=== PATIENT | male | born 1975 | race Caucasian/White ===

== ENCOUNTER → 2017-04-18 | Outpatient (CLI) | payer BC ==
[2017-04-18 15:43] LABS: ALT 70 U/L (21-72); AST 32 U/L (17-59); Alkaline Phosphatase 72 U/L (38-126); Anion Gap 10 mmol/L; Blood Urea Nitrogen 19 mg/dL (9-20); Calcium 9.4 mg/dL (8.4-10.2); Carbon Dioxide 31 mmol/L (22-30); Chloride 98 mmol/L (98-107); Glucose 91 mg/dL (74-99); Non-African American GFR(MDRD) >60 (>60 ml/min/1.73 sqM); Potassium 4.3 mmol/L (3.5-5.1); Sodium 139 mmol/L (137-145); Total Bilirubin 0.4 mg/dL (0.2-1.3); Total Protein 8.4 g/dL (6.3-8.2)
[2017-04-18 16:12] LABS: Anisocytosis Slight; Aty Lym Flag Slight; CH 30.7; HCT 42.4 % (39.0-53.0); HDW 2.64; HGB 13.8 gm/dL (13.0-17.5); MCH 29.6 pg (25.0-35.0); MCHC 32.6 g/dL (31.0-37.0); MCV 90.9 fL (80.0-100.0); Mean Platelet Volume 6.7; RBC 4.67 m/uL (4.30-5.90); RDW 16.1 % (11.5-15.5); WBC 5.8 k/uL (3.8-10.6)
[2017-04-18 16:14] LABS: Hepatitis B Surface Ag Index 0.06
[2017-04-18 16:19] LABS: Hepatitis B Core IgM Index 0.03
[2017-04-18 16:31] LABS: Hepatitis C Virus IgG Ab Negative (Negative); Hepatitis C Virus IgG Index 0.06
[2017-04-18 17:37] LABS: Add Differential Manual Differential
[2017-04-18 17:41] LABS: Nucleated Red Blood Cells 0 /100 WBC (0-0); Total Cells Counted 100
[2017-04-18 19:48] LABS: Treponemal Ab Reactive (Non-Reactive)
[2017-04-22 14:38] LABS: LOG HIV Copies/mL 4.52 (<1.60)
== END | disposition home or self-care (01) ==
LOC: LABWHC1 15:03
PROVIDERS: ATTEND Internal Medicine Infectious Disease
DX: B20 Human immunodeficiency virus [HIV] disease (principal)
CPT/HCPCS: 36415; 80053; 80074; 85025; 86360; 86780; 87536; 87901

== ENCOUNTER → 2017-06-18 | Outpatient (CLI) | payer BC ==
[2017-06-18 13:08] LABS: ALT 52 U/L (21-72); AST 37 U/L (17-59); Alkaline Phosphatase 98 U/L (38-126); Anion Gap 11 mmol/L; Blood Urea Nitrogen 16 mg/dL (9-20); Calcium 9.4 mg/dL (8.4-10.2); Carbon Dioxide 28 mmol/L (22-30); Chloride 100 mmol/L (98-107); Glucose 143 mg/dL (74-99); Non-African American GFR(MDRD) >60 (>60 ml/min/1.73 sqM); Potassium 4.6 mmol/L (3.5-5.1); Sodium 139 mmol/L (137-145); Total Bilirubin 0.4 mg/dL (0.2-1.3); Total Protein 8.1 g/dL (6.3-8.2)
[2017-06-18 13:09] LABS: Basophils # (A) 0.1 k/uL (0-0.2); Basophils % (A) 1 %; CH 29.3; CHCM 33.4; Eosinophils # (A) 0.6 k/uL (0-0.7); Eosinophils % (A) 12 %; HCT 46.8 % (39.0-53.0); HGB 15.6 gm/dL (13.0-17.5); Luc # (Auto) 0.21; Luc % (Auto) 4; Lymphocytes # (A) 1.7 k/uL (1.0-4.8); Lymphocytes % (A) 36 %; MCH 29.5 pg (25.0-35.0); MCHC 33.5 g/dL (31.0-37.0); MCV 88.1 fL (80.0-100.0); Monocytes # (A) 0.3 k/uL (0-1.0); Monocytes % (A) 6 %; Neutrophils % (A) 42 %; RBC 5.31 m/uL (4.30-5.90); WBC 4.8 k/uL (3.8-10.6); WBC (Perox) 4.57
[2017-06-19 13:40] LABS: LOG HIV Copies/mL <1.60 (<1.60)
== END | disposition home or self-care (01) ==
LOC: LABWHC1 12:27
PROVIDERS: ATTEND Internal Medicine Infectious Disease
DX: B20 Human immunodeficiency virus [HIV] disease (principal)
CPT/HCPCS: 36415; 80053; 85025; 86360; 87536

== ENCOUNTER → 2017-09-26 | Outpatient (CLI) | payer BC ==
[2017-09-26 16:59] LABS: HCT 48.1 % (39.0-53.0); HGB 15.9 gm/dL (13.0-17.5); MCHC 33.2 g/dL (31.0-37.0); MCV 84.4 fL (80.0-100.0); Platelet Count 210 k/uL (150-450); RDW 12.4 % (11.5-15.5); WBC 4.8 k/uL (3.8-10.6)
[2017-09-26 17:17] LABS: ALT 57 U/L (21-72); AST 38 U/L (17-59); Albumin 4.8 g/dL (3.5-5.0); Alkaline Phosphatase 113 U/L (38-126); Anion Gap 13 mmol/L; Blood Urea Nitrogen 22 mg/dL (9-20); Calcium 9.9 mg/dL (8.4-10.2); Carbon Dioxide 30 mmol/L (22-30); Chloride 99 mmol/L (98-107); Glucose 117 mg/dL (74-99); Potassium 4.5 mmol/L (3.5-5.1); Sodium 142 mmol/L (137-145); Total Bilirubin 0.3 mg/dL (0.2-1.3); Total Protein 8.5 g/dL (6.3-8.2)
[2017-09-26 18:15] LABS: Eosinophils # (M) 0.19 k/uL (0-0.7); Lymphocytes # (M) 2.11 k/uL (1.0-4.8); Monocytes # (M) 0.48 k/uL (0-1.0); Neutrophils # (M) 2.02 k/uL (1.3-7.7); Neutrophils % (M) 42 %; Nucleated Red Blood Cells 0 /100 WBC (0-0); Polychromasia Present; Total Cells Counted 100
[2017-09-27 10:45] LABS: T4/T8 Ratio (CD4:CD8) 0.3 (1.0-3.7)
[2017-09-27 14:35] LABS: HIV-1 RNA Not detected (Not detected); HIV-1 RNA, Quant <40 Copies/mL (<40)
== END | disposition home or self-care (01) ==
LOC: LABWHC1 15:59
PROVIDERS: ATTEND Internal Medicine Infectious Disease
DX: B20 Human immunodeficiency virus [HIV] disease (principal)
CPT/HCPCS: 36415; 80053; 85025; 86360; 87536

== ENCOUNTER → 2018-03-07 | Outpatient (CLI) | payer BC ==
[2018-03-07 15:11] LABS: Basophils # (A) 0.1 k/uL (0-0.2); Basophils % (A) 1 %; Eosinophils # (A) 0.1 k/uL (0-0.7); Eosinophils % (A) 3 %; HCT 47.2 % (39.0-53.0); HGB 15.5 gm/dL (13.0-17.5); Lymphocytes # (A) 1.6 k/uL (1.0-4.8); Lymphocytes % (A) 31 %; MCH 26.9 pg (25.0-35.0); MCHC 32.8 g/dL (31.0-37.0); Mean Platelet Volume 5.7; Monocytes # (A) 0.3 k/uL (0-1.0); Monocytes % (A) 5 %; Neutrophils % (A) 57 %; Platelet Count 210 k/uL (150-450); RBC 5.75 m/uL (4.30-5.90); RDW 13.8 % (11.5-15.5); WBC 5.3 k/uL (3.8-10.6)
[2018-03-07 15:12] LABS: Albumin 4.9 g/dL (3.5-5.0); Calcium 9.8 mg/dL (8.4-10.2); Potassium 4.8 mmol/L (3.5-5.1); Total Bilirubin 0.4 mg/dL (0.2-1.3); Total Protein 8.1 g/dL (6.3-8.2)
[2018-03-08 09:40] LABS: T4/T8 Ratio (CD4:CD8) 0.4 (1.0-3.7)
[2018-03-10 14:26] LABS: HIV-1 RNA Not detected (Not detected); HIV-1 RNA, Quant <40 Copies/mL (<40)
== END | disposition home or self-care (01) ==
LOC: LABWHC1 14:35
PROVIDERS: ATTEND Internal Medicine Infectious Disease
DX: B20 Human immunodeficiency virus [HIV] disease (principal)
CPT/HCPCS: 36415; 80053; 85025; 86360; 87536

== ENCOUNTER → 2018-06-24 | Outpatient (CLI) | payer BC ==
[2018-06-24 13:48] LABS: Basophils % (A) 1 %; Eosinophils # (A) 0.2 k/uL (0-0.7); Eosinophils % (A) 4 %; HCT 49.7 % (39.0-53.0); HGB 16.5 gm/dL (13.0-17.5); Lymphocytes # (A) 1.5 k/uL (1.0-4.8); Lymphocytes % (A) 35 %; MCH 27.9 pg (25.0-35.0); MCHC 33.2 g/dL (31.0-37.0); MCV 84.1 fL (80.0-100.0); Mean Platelet Volume 6.1; Monocytes # (A) 0.3 k/uL (0-1.0); Monocytes % (A) 7 %; Neutrophils # (A) 2.1 k/uL (1.3-7.7); Neutrophils % (A) 49 %; Platelet Count 203 k/uL (150-450); RBC 5.91 m/uL (4.30-5.90); WBC 4.3 k/uL (3.8-10.6)
[2018-06-24 13:52] LABS: ALT 63 U/L (21-72); AST 42 U/L (17-59); Albumin 5.1 g/dL (3.5-5.0); Alkaline Phosphatase 133 U/L (38-126); Anion Gap 13 mmol/L; Blood Urea Nitrogen 23 mg/dL (9-20); Carbon Dioxide 28 mmol/L (22-30); Chloride 100 mmol/L (98-107); Glucose 123 mg/dL (74-99); Potassium 4.7 mmol/L (3.5-5.1); Sodium 141 mmol/L (137-145); Total Bilirubin 0.5 mg/dL (0.2-1.3); Total Protein 8.9 g/dL (6.3-8.2)
[2018-06-25 10:24] LABS: T4/T8 Ratio (CD4:CD8) 0.4 (1.0-3.7)
[2018-06-25 13:45] LABS: HIV-1 RNA Not detected (Not detected); HIV-1 RNA, Quant <40 Copies/mL (<40)
== END | disposition home or self-care (01) ==
LOC: LABWHC1 12:47
PROVIDERS: ATTEND Internal Medicine Infectious Disease
DX: B20 Human immunodeficiency virus [HIV] disease (principal)
CPT/HCPCS: 36415; 80053; 85025; 86360; 87536

== ENCOUNTER → 2019-05-01 | Outpatient (CLI) | payer BC ==
[2019-05-01 13:28] LABS: Basophils % (A) 1 %; Eosinophils # (A) 0.3 k/uL (0-0.7); Eosinophils % (A) 5 %; HCT 46.2 % (39.0-53.0); HGB 15.4 gm/dL (13.0-17.5); Lymphocytes # (A) 1.5 k/uL (1.0-4.8); Lymphocytes % (A) 31 %; MCH 27.8 pg (25.0-35.0); MCHC 33.4 g/dL (31.0-37.0); MCV 83.4 fL (80.0-100.0); Monocytes # (A) 0.3 k/uL (0-1.0); Monocytes % (A) 7 %; Neutrophils # (A) 2.5 k/uL (1.3-7.7); Neutrophils % (A) 53 %; Platelet Count 220 k/uL (150-450); RBC 5.53 m/uL (4.30-5.90); RDW 13.8 % (11.5-15.5); WBC 4.7 k/uL (3.8-10.6)
[2019-05-01 19:14] LABS: African American GFR (CKD) 93.5 (60.0-200.0); Anion Gap 8.9 mmol/L (4.00-12.00); BUN/Creat Ratio 12.73 Ratio (12.00-20.00); Calcium 9.4 mg/dL (8.7-10.3); Carbon Dioxide 29.1 mmol/L (21.6-31.8); Non-African American GFR(CKD) 80.6 (60.0-200.0); Potassium 4.6 mmol/L (3.5-5.5)
[2019-05-02 11:41] LABS: T4/T8 Ratio (CD4:CD8) 0.4 (1.0-3.7)
[2019-05-04 11:51] LABS: HIV-1 RNA DETECTED (Not detected); HIV-1 RNA, Quant <40 Copies/mL (<40)
== END | disposition home or self-care (01) ==
LOC: LABWHC1 12:21
PROVIDERS: ATTEND Internal Medicine Infectious Disease
DX: B20 Human immunodeficiency virus [HIV] disease (principal)
CPT/HCPCS: 36415; 80048; 85025; 86360; 87536

== ENCOUNTER → 2019-05-04 | Outpatient (CLI) | payer BC ==
[2019-05-04 18:16] LABS: Chol/HDL Ratio 4.71; LDL Cholesterol,Calculated 94.2 mg/dL (0.0-131.0); VLDL Calculation 31.8 mg/dL (5.00-40.00)
== END | disposition home or self-care (01) ==
LOC: LABWHC1 08:42
PROVIDERS: ATTEND Internal Medicine Infectious Disease
DX: B20 Human immunodeficiency virus [HIV] disease (principal)
CPT/HCPCS: 36415; 80061

== ENCOUNTER 2020-04-29 13:37 | Inpatient (IN) | payer BC ==
[2020-04-29] MEDS ORDERED: SODIUM CHLORIDE 0.9% 1,000 ML IV STA (13:59)
[2020-04-29] MEDS ORDERED: MORPHINE SULFATE 4 MG/ML SYRINGE IV STA (13:59)
[2020-04-29] MEDS ORDERED: ONDANSETRON 4 MG/2 ML VIAL IVP STA (14:00)
[2020-04-29 14:41] LABS: Basophils # (A) 0.1 k/uL (0-0.2); Basophils % (A) 1 %; Eosinophils % (A) 0 %; HCT 44.5 % (39.0-53.0); HGB 14.8 gm/dL (13.0-17.5); Lymphocytes # (A) 0.8 k/uL (1.0-4.8); Lymphocytes % (A) 8 %; MCH 27.9 pg (25.0-35.0); MCHC 33.2 g/dL (31.0-37.0); MCV 83.9 fL (80.0-100.0); Mean Platelet Volume 6.4; Monocytes # (A) 0.5 k/uL (0-1.0); Monocytes % (A) 5 %; Neutrophils # (A) 9.4 k/uL (1.3-7.7); Neutrophils % (A) 84 %; Platelet Count 196 k/uL (150-450); RBC 5.31 m/uL (4.30-5.90); RDW 13.4 % (11.5-15.5); WBC 11.1 k/uL (3.8-10.6)
[2020-04-29 14:42] LABS: Appearance,Urine Clear (Clear); Bilirubin,Urine Negative (Negative); Blood,Urine Negative (Negative); Color,Urine Yellow; Glucose,Urine (UA) Negative (Negative); Ketones,Urine Negative (Negative); Leukocyte Esterase,Urine Negative (Negative); Nitrite,Urine Negative (Negative); Protein,Urine Trace (Negative); Specific Gravity,Urine 1.026 (1.001-1.035); Urobilinogen,Urine <2.0 mg/dL (<2.0)
[2020-04-29 14:48] LABS: Partial Thromboplastin Time 24.5 sec (22.0-30.0)
[2020-04-29 14:50] LABS: ALT 36 U/L (4-49); AST 33 U/L (17-59); African American GFR (CKD) >90 (>60 ml/min/1.73 sqM); Albumin 4.9 g/dL (3.5-5.0); Alkaline Phosphatase 101 U/L (38-126); Amylase 62 U/L (30-110); Anion Gap 8 mmol/L; Blood Urea Nitrogen 24 mg/dL (9-20); Calcium 9.4 mg/dL (8.4-10.2); Carbon Dioxide 25 mmol/L (22-30); Chloride 102 mmol/L (98-107); Glucose 164 mg/dL (74-99); Non-African American GFR(CKD) >90 (>60 ml/min/1.73 sqM); Potassium 4.2 mmol/L (3.5-5.1); Sodium 135 mmol/L (137-145); Total Protein 7.7 g/dL (6.3-8.2)
--- NOTE | 2020-04-29 14:57 | CT ---
EXAMINATION TYPE: CT abdomen pelvis w con DATE OF EXAM: 04/29/2020 COMPARISON: 03/05/2016 HISTORY: Lower abdominal pain. CT DLP: 1493.2 mGycm CONTRAST: CT scan of the abdomen and pelvis is performed without Oral Contrast and with IV Contrast, patient in jected with 100 mL of Isovue 300. FINDINGS: LUNG BASES-: No visible nodule. No infiltrate. LIVER/GB: No calcified gallstones. Fatty liver. No space occupying hepatic lesion. Biliary tree is of normal caliber. PANCREAS: No inflammation. No distinct mass. SPLEEN: No splenic enlargement. No lesion seen. ADRENALS: No nodule. No thickening. KIDNEYS/BLADDER: No hydronephrosis. Nonobstructing nephrolithiasis lower pole left kidney. Additiona l nonobstructing left renal calculi measuring up to 7.4 mm. No distinct renal mass. Urinary bladder grossly unremarkable. BOWEL: Mild thickening and dilatation of the appendix measuring up to 1.2 cm with mild periappendicea l inflammatory change compatible with mild uncomplicated acute appendicitis. Normal bowel caliber. GENITAL ORGANS: No gross abnormality. LYMPH NODES: No greater than 1cm abdominal or pelvic lymph nodes are appreciated. AORTA: No significant abnormality. OSSEOUS STRUCTURES: No significant abnormality is seen. OTHER: No significant additional abnormality is seen. IMPRESSION: 1. Mild thickening and dilatation of the appendix measuring up to 1.2 cm with mild periappendiceal in flammatory change compatible with mild uncomplicated acute appendicitis.
--- NOTE | 2020-04-29 14:58 | ED ---
Abdominal Pain HPI <Cristo Chavira - Last Filed: 04/29/20 15:13> - General Source: patient Mode of arrival: ambulatory Limitations: no limitations <Jenni Soto - Last Filed: 04/29/20 15:24> - General Chief Complaint: Abdominal Pain Stated Complaint: Abd Pain Time Seen by Provider: 04/29/20 13:44 - History of Present Illness Initial Comments: Patient is a 44-year-old male presenting to the emergency Department with complaints of lower abdominal pain that started approximately 6 AM this morning. Patient states yesterday he felt fine, was able to eat and drink as normal. Patient states he sat down to start work today and noticed some lower abdominal discomfort. He states it is certainly progressed into excruciating pain. He states he feels it all over the lower abdomen. He denies any nausea or vomiting. He denies any fever or chills. He states history of umbilical hernia repair, no other abdominal surgeries. He's been having regular bowel movements, he denies any urinary complaints. He states he does have a history of kidney stones and this feels different. He states he also feels like his abdomen is distended. He has not been able to eat or drink anything today. He has no further complaints at this time. Upon arrival to the ER, his vitals are stable. (Jenni Soto) - Related Data Home Medications Medication Instructions Recorded Confirmed Acetaminophen Tab [Tylenol] 650 mg PO Q6H PRN 02/29/16 03/05/16 Lisdexamfetamine Dimesylate 60 mg PO QAM 02/29/16 03/05/16 [Vyvanse] HYDROcodone/APAP 7.5-325MG [[place] 1 tab PO Q4H PRN 03/05/16 03/05/16 7.5-325] Omeprazole [PriLOSEC] 20 mg PO AC-BID PRN 03/05/16 03/05/16 Allergies Allergy/AdvReac Type Severity Reaction Status Date / Time codeine Allergy Nausea & Verified 04/29/20 13:41 Vomiting, Rash/Hives Review of Systems ROS Other: All systems not noted in ROS Statement are negative. <Cristo Chavira - Last Filed: 04/29/20 15:13> ROS Other: All systems not noted in ROS Statement are negative. <Jenni Soto - Last Filed: 04/29/20 15:24> ROS Statement: Those systems with pertinent positive or pertinent negative responses have been documented in the HPI. Past Medical History Past Medical History: GERD/Reflux Additional Past Medical History / Comment(s): HX OF SPINAL FUSION-OCCASIONAL BACK PAIN, UMBILICAL HERNIA., kidney stones History of Any Multi-Drug Resistant Organisms: None Reported Past Surgical History: Back Surgery Additional Past Surgical History / Comment(s): SPINAL FUSION 2014 (LUMBAR) Past Anesthesia/Blood Transfusion Reactions: No Reported Reaction Past Psychological History: ADD/ADHD Smoking Status: Never smoker Past Alcohol Use History: Occasional Past Drug Use History: None Reported - Past Family History Mother Family Medical History: No Reported History <Jenni Soto - Last Filed: 04/29/20 15:24> General Exam Limitations: no limitations <Jenni Soto - Last Filed: 04/29/20 15:24> - General Exam Comments Initial Comments: GENERAL: Patient is well-developed and well-nourished. Patient is nontoxic and in no acute distress. HEAD: Atraumatic, normocephalic. EYES: Pupils equal round and reactive to light, extraocular movements intact, sclera anicteric, conjunctiva are normal. Eyelids were unremarkable. ENT: TMs normal, nares patent, oropharynx clear without exudates. Moist mucous membranes. NECK: Normal range of motion, supple without lymphadenopathy or JVD. LUNGS: Unlabored respirations. Breath sounds clear to auscultation bilaterally and equal. No wheezes rales or rhonchi. HEART: Regular rate and rhythm without murmurs, rubs or gallops. ABDOMEN: Tender to palpation of the entire lower abdomen, umbilical region, positive guarding. Positive Rovsing sign. Soft, normoactive bowel sounds. No masses appreciated. : Deferred MUSCULOSKELETAL: Normal extremities with adequate strength and normal range of motion, no pitting or edema. No clubbing or cyanosis. NEUROLOGICAL: Patient is alert and oriented x 3. Motor and sensory are also intact. Cranial nerves II through XII grossly intact. Symmetrical smile. Normal speech, normal gait. PSYCH: Normal mood, normal affect. SKIN: Warm, Dry, normal turgor, no rashes or lesions noted. (Jenni Soto) Course Vital Signs 04/29/20 04/29/20 13:39 15:14 Temperature 97.9 F 98 F Pulse Rate 76 90 Respiratory 20 18 Rate Blood Pressure 132/91 140/70 O2 Sat by Pulse 97 100 Oximetry Medical Decision Making - Lab Data Result diagrams: 04/29/20 14:10 04/29/20 14:10 <Cristo Chavira - Last Filed: 04/29/20 15:13> - Lab Data Result diagrams: 04/29/20 14:10 04/29/20 14:10 <Jenni Soto - Last Filed: 04/29/20 15:24> - Medical Decision Making Patient reevaluated and reexamined by myself, Dr. Chavira. Patient updated on results and plan. Case was discussed with Dr. Yeager, who will admit for surgical call. Case was earlier discussed with Dr. Sim who stated Dr. Rabago was on-call, who stated Dr. Yeager was configuration analyst. (Cristo Chavira) Patient is a 44-year-old male here for lower abdominal pain started at 6 AM this morning. History of umbilical hernia repair, no other abdominal surgeries. His vital signs are stable upon arrival. Patient has significant pain with palpation of the entire lower abdomen, umbilical region. Lab work does show slight leukocytosis of 11.1, lactic acid is normal at 1.3, lipase is 85, urine shows no evidence of infection, no hematuria. Computed tomography scan shows evidence for acute mild appendicitis. Patient has been given fluids, pain control. I will start antibiotics on the patient. Patient will be admitted to Dr. Damon who accepts admission. Will keep patient NPO. Patient is agreement with this plan of care. Case discussed with Dr. Chavira. (Jenni Soto) - Lab Data Lab Results 04/29/20 04/29/20 04/29/20 Range/Units 14:10 14:10 14:10 WBC 11.1 H (3.8-10.6) k/uL RBC 5.31 (4.30-5.90) m/uL Hgb 14.8 (13.0-17.5) gm/dL Hct 44.5 (39.0-53.0) % MCV 83.9 (80.0-100.0) fL MCH 27.9 (25.0-35.0) pg MCHC 33.2 (31.0-37.0) g/dL RDW 13.4 (11.5-15.5) % Plt Count 196 (150-450) k/uL Neutrophils % 84 % Lymphocytes % 8 % Monocytes % 5 % Eosinophils % 0 % Basophils % 1 % Neutrophils # 9.4 H (1.3-7.7) k/uL Lymphocytes # 0.8 L (1.0-4.8) k/uL Monocytes # 0.5 (0-1.0) k/uL Eosinophils # 0.0 (0-0.7) k/uL Basophils # 0.1 (0-0.2) k/uL PT 10.0 (9.0-12.0) sec INR 1.0 (<1.2) APTT 24.5 (22.0-30.0) sec Sodium (137-145) mmol/L Potassium (3.5-5.1) mmol/L Chloride (98-107) mmol/L Carbon Dioxide (22-30) mmol/L Anion Gap mmol/L BUN (9-20) mg/dL Creatinine (0.66-1.25) mg/dL Est GFR (CKD-EPI)AfAm (>60 ml/min/1.73 sqM) Est GFR (CKD-EPI)NonAf (>60 ml/min/1.73 sqM) Glucose (74-99) mg/dL Plasma Lactic Acid Gelacio (0.7-2.0) mmol/L Calcium (8.4-10.2) mg/dL Total Bilirubin (0.2-1.3) mg/dL AST (17-59) U/L ALT (4-49) U/L Alkaline Phosphatase (38-126) U/L Total Protein (6.3-8.2) g/dL Albumin (3.5-5.0) g/dL Amylase (30-110) U/L Lipase (23-300) U/L Urine Color Yellow Urine Appearance Clear (Clear) Urine pH 6.0 (5.0-8.0) Ur Specific [place] 1.026 (1.001-1.035) Urine Protein Trace H (Negative) Urine Glucose (UA) Negative (Negative) Urine Ketones Negative (Negative) Urine Blood Negative (Negative) Urine Nitrite Negative (Negative) Urine Bilirubin Negative (Negative) Urine Urobilinogen <2.0 (<2.0) mg/dL Ur Leukocyte Esterase Negative (Negative) 04/29/20 04/29/20 Range/Units 14:10 14:10 WBC (3.8-10.6) k/uL RBC (4.30-5.90) m/uL Hgb (13.0-17.5) gm/dL Hct (39.0-53.0) % MCV (80.0-100.0) fL MCH (25.0-35.0) pg MCHC (31.0-37.0) g/dL RDW (11.5-15.5) % Plt Count (150-450) k/uL Neutrophils % % Lymphocytes % % Monocytes % % Eosinophils % % Basophils % % Neutrophils # (1.3-7.7) k/uL Lymphocytes # (1.0-4.8) k/uL Monocytes # (0-1.0) k/uL Eosinophils # (0-0.7) k/uL Basophils # (0-0.2) k/uL PT (9.0-12.0) sec INR (<1.2) APTT (22.0-30.0) sec Sodium 135 L (137-145) mmol/L Potassium 4.2 (3.5-5.1) mmol/L Chloride 102 (98-107) mmol/L Carbon Dioxide 25 (22-30) mmol/L Anion Gap 8 mmol/L BUN 24 H (9-20) mg/dL Creatinine 0.82 (0.66-1.25) mg/dL Est GFR (CKD-EPI)AfAm >90 (>60 ml/min/1.73 sqM) Est GFR (CKD-EPI)NonAf >90 (>60 ml/min/1.73 sqM) Glucose 164 H (74-99) mg/dL Plasma Lactic Acid Gelacio 1.3 (0.7-2.0) mmol/L Calcium 9.4 (8.4-10.2) mg/dL Total Bilirubin 1.0 (0.2-1.3) mg/dL AST 33 (17-59) U/L ALT 36 (4-49) U/L Alkaline Phosphatase 101 (38-126) U/L Total Protein 7.7 (6.3-8.2) g/dL Albumin 4.9 (3.5-5.0) g/dL Amylase 62 (30-110) U/L Lipase 85 (23-300) U/L Urine Color Urine Appearance (Clear) Urine pH (5.0-8.0) Ur Specific [place] (1.001-1.035) Urine Protein (Negative) Urine Glucose (UA) (Negative) Urine Ketones (Negative) Urine Blood (Negative) Urine Nitrite (Negative) Urine Bilirubin (Negative) Urine Urobilinogen (<2.0) mg/dL Ur Leukocyte Esterase (Negative) Disposition <Cristo Chavira - Last Filed: 04/29/20 15:13> Decision Date: 04/29/20 Decision Time: 15:18 <Jenni Soto - Last Filed: 04/29/20 15:24> Clinical Impression: Acute appendicitis Disposition: ADMITTED IP TO THIS HOSP Condition: Stable Referrals: Александр Gaona DO [Primary Care Provider] - 1-2 days
[2020-04-29] MEDS ORDERED: MORPHINE SULFATE 4 MG/ML SYRINGE IVP STA (15:04)
[2020-04-29] MEDS ORDERED: PIPERACILLIN-TAZOBACTAM 3.375 GM in SODIUM CHLORIDE 0.9% 100 ML IVPB STA (15:04)
[2020-04-29] MEDS ORDERED: NALOXONE 0.4 MG/ML 1 ML VIAL IV PRN (15:16)
[2020-04-29] MEDS ORDERED: ONDANSETRON 4 MG/2 ML VIAL IVP PRN (15:16)
[2020-04-29] MEDS ORDERED: KETOROLAC 15 MG/ML 1 ML VIAL IVP PRN (15:16)
[2020-04-29] MEDS: SODIUM CHLORIDE 0.9% 1,000 ML IV SCH (15:49)
[2020-04-29] MEDS ORDERED: MIDAZOLAM 2 MG/2 ML VIAL IVP ONE (16:49)
[2020-04-29] MEDS ORDERED: ONDANSETRON 4 MG/2 ML VIAL IVP ONE (16:49)
[2020-04-29] MEDS ORDERED: fentaNYL (PF) 50 MCG/ML 2 ML AMP IVP ONE ×2 (16:49)
[2020-04-29] MEDS ORDERED: IV FLUID CONTINUATION 1,000 ML IV ONE (17:01)
[2020-04-29] MEDS ORDERED: fentaNYL (PF) 50 MCG/ML 2 ML AMP IV ONE ×2 (17:27→17:37)
--- NOTE | 2020-04-29 17:40 | P.GSHP ---
History of Present Illness H&P Date: 04/29/20 Chief Complaint: abdominal pain The patient is a 44 show man who presented with abdominal pain. He was in his usual state of health yesterday. This morning he developed right lower quadrant pain and got progressively worse through the day. He was unable to eat and drink. The pain got worse so he came into the emergency department and workup showed acute appendicitis. He had a umbilical hernia repair in 2016. He says it was "a mess", sounds like he had a postoperative infection. He did not require further surgery for this. - Review of Systems All systems: negative Past Medical History Past Medical History: GERD/Reflux Additional Past Medical History / Comment(s): HX OF SPINAL FUSION-OCCASIONAL BACK PAIN, UMBILICAL HERNIA., kidney stones, HIV History of Any Multi-Drug Resistant Organisms: None Reported Past Surgical History: Back Surgery Additional Past Surgical History / Comment(s): SPINAL FUSION 2013 (LUMBAR), umbilical hermia Past Anesthesia/Blood Transfusion Reactions: No Reported Reaction Past Psychological History: ADD/ADHD Smoking Status: Never smoker Past Alcohol Use History: Occasional Past Drug Use History: None Reported - Past Family History Mother Family Medical History: No Reported History Medications and Allergies Home Medications Medication Instructions Recorded Confirmed Type Lisdexamfetamine Dimesylate 60 mg PO DAILY 02/29/16 04/29/20 History [Vyvanse] Elviteg/Namita/Emtric/Tenofo Dis 1 tab PO DAILY 04/29/20 04/29/20 History [Stribild Tablet] Mometasone Furoate [Nasonex Nasal 2 spray EA NOSTRIL DAILY 04/29/20 04/29/20 History Christiana] Allergies Allergy/AdvReac Type Severity Reaction Status Date / Time codeine AdvReac Nausea & Verified 04/29/20 16:53 Vomiting, Rash/Hives Surgical - Exam Osteopathic Statement: *. No significant issues noted on an osteopathic structural exam other than those noted in the History and Physical/Consult. Vital Signs Temp Pulse Resp BP Pulse Ox 97.9 F 76 20 132/91 97 04/29/20 13:39 04/29/20 13:39 04/29/20 13:39 04/29/20 13:39 04/29/20 13:39 - General well developed, well nourished, moderate distress - Eyes normal ocular movement - ENT normal mucosa, no hearing loss - Neck trachea midline - Respiratory clear to auscultation - Cardiovascular Rhythm: regular - Abdomen Abdomen: soft, tender, surgical scars, guarding (Voluntary guarding right lower quadrant) Results - Labs 04/29/20 14:10 04/29/20 14:10 Abnormal Lab Results - Last 24 Hours (Table) 04/29/20 04/29/20 04/29/20 Range/Units 14:10 14:10 14:10 WBC 11.1 H (3.8-10.6) k/uL Neutrophils # 9.4 H (1.3-7.7) k/uL Lymphocytes # 0.8 L (1.0-4.8) k/uL Sodium 135 L (137-145) mmol/L BUN 24 H (9-20) mg/dL Glucose 164 H (74-99) mg/dL Urine Protein Trace H (Negative) Diabetes panel 04/29/20 Range/Units 14:10 Sodium 135 L (137-145) mmol/L Potassium 4.2 (3.5-5.1) mmol/L Chloride 102 (98-107) mmol/L Carbon Dioxide 25 (22-30) mmol/L BUN 24 H (9-20) mg/dL Creatinine 0.82 (0.66-1.25) mg/dL Glucose 164 H (74-99) mg/dL Calcium 9.4 (8.4-10.2) mg/dL AST 33 (17-59) U/L ALT 36 (4-49) U/L Alkaline Phosphatase 101 (38-126) U/L Total Protein 7.7 (6.3-8.2) g/dL Albumin 4.9 (3.5-5.0) g/dL Calcium panel 04/29/20 Range/Units 14:10 Calcium 9.4 (8.4-10.2) mg/dL Albumin 4.9 (3.5-5.0) g/dL Pituitary panel 04/29/20 Range/Units 14:10 Sodium 135 L (137-145) mmol/L Potassium 4.2 (3.5-5.1) mmol/L Chloride 102 (98-107) mmol/L Carbon Dioxide 25 (22-30) mmol/L BUN 24 H (9-20) mg/dL Creatinine 0.82 (0.66-1.25) mg/dL Glucose 164 H (74-99) mg/dL Calcium 9.4 (8.4-10.2) mg/dL Adrenal panel 04/29/20 Range/Units 14:10 Sodium 135 L (137-145) mmol/L Potassium 4.2 (3.5-5.1) mmol/L Chloride 102 (98-107) mmol/L Carbon Dioxide 25 (22-30) mmol/L BUN 24 H (9-20) mg/dL Creatinine 0.82 (0.66-1.25) mg/dL Glucose 164 H (74-99) mg/dL Calcium 9.4 (8.4-10.2) mg/dL Total Bilirubin 1.0 (0.2-1.3) mg/dL AST 33 (17-59) U/L ALT 36 (4-49) U/L Alkaline Phosphatase 101 (38-126) U/L Total Protein 7.7 (6.3-8.2) g/dL Albumin 4.9 (3.5-5.0) g/dL - Imaging CT scan - abdomen: report reviewed Assessment and Plan (1) Acute appendicitis Current Visit: Yes Status: Acute Code(s): K35.80 - UNSPECIFIED ACUTE APPENDICITIS SNOMED Code(s): 76036381 Plan: Laparoscopic appendectomy possible open. The procedure, risks, complications were discussed. Usual postoperative course was discussed. The trocar sites will have to be altered due to previous hernia surgery. Questions were encouraged and answered. We'll do DVT and ulcer prophylaxis. Further recommendations to follow.
[2020-04-29] MEDS ORDERED: KETOROLAC 30 MG/ML 1 ML VIAL ONE (17:45)
[2020-04-29] MEDS ORDERED: SUCCINYLCHOLINE CHLORIDE 100 MG/5 ML SYR IV ONE (17:45)
[2020-04-29] MEDS ORDERED: ONDANSETRON 4 MG/2 ML VIAL ONE (17:45)
[2020-04-29] MEDS ORDERED: GLYCOPYRROLATE 0.2 MG/ML 2 ML VIAL ONE (17:45)
[2020-04-29] MEDS ORDERED: NEOSTIGMINE 1 MG/ML 10 ML VIAL ONE (17:45)
[2020-04-29] MEDS ORDERED: fentaNYL (PF) 50 MCG/ML 2 ML AMP ONE (17:45)
[2020-04-29] MEDS ORDERED: PROPOFOL 10 MG/ML 20 ML VIAL IV ONE (17:45)
[2020-04-29] MEDS ORDERED: ROCURONIUM BROMIDE 10 MG/ML 5 ML VIAL IV ONE (17:45)
[2020-04-29] MEDS ORDERED: LIDOCAINE 1% INJ 10MG/ML (20 ML MDV) ONE (17:45)
[2020-04-29] MEDS ORDERED: MIDAZOLAM 2 MG/2 ML VIAL ONE (17:45)
[2020-04-29] MEDS ORDERED: SODIUM CHLORIDE 0.9% 1,000 ML IV ONE ×2 (17:51→20:04)
[2020-04-29] MEDS ORDERED: BUPIVACAIN-EPI 0.25%-1:200,000 30 ML VIAL SQ ONE ×2 (18:17)
[2020-04-29] MEDS ORDERED: LACTATED RINGERS 1,000 ML IV ONE (18:22)
[2020-04-29] MEDS ORDERED: traMADol 50 MG TAB PO PRN (19:08)
[2020-04-29] MEDS ORDERED: METOCLOPRAMIDE 5 MG/ML 2 ML VIAL IVP PRN (19:08)
--- NOTE | 2020-04-29 19:14 | P.OP ---
Date of Procedure: 04/29/20 Preoperative Diagnosis: Acute appendicitis Postoperative Diagnosis: Acute gangrenous appendicitis Procedure(s) Performed: Laparoscopic appendectomy Anesthesia: BEV Surgeon: Kristina Damon Estimated Blood Loss (ml): 10 Pathology: other (Appendix) Condition: stable Disposition: PACU Indications for Procedure: The patient presented with acute abdominal pain. Workup by a CT showed acute appendicitis Description of Procedure: The patient's taken the operative suite where he is prepped and draped in the usual sterile manner under general endotracheal anesthetic. A small incision is made to the left of the umbilicus. A optical trocar was placed through the abdominal wall into the peritoneal cavity. Pneumoperitoneum was established with CO2 gas. He has omentum adherent in the periumbilical and right upper quadrant. Sites are chosen for accessory trochars needs are placed through small skin incisions. The appendix is grasped and the mesentery was taken down with harmonic scissors. The appendix was gangrenous and began to leak allan fluid with manipulation. An appendicolith also fell out of the appendix. An additional trocar was placed. The appendicolith was grasped and placed into a specimen retrieval bag and removed. The base the appendix was freed up. It was ligated with a ISAI stapler device. The specimen was then placed into a specimen retrieval bag. The appendiceal stump and paracolic gutter were irrigated and aspirated. No bleeding was noted. The excess irrigant was suctioned out. The pneumoperitoneum was released. The trochars were removed. The specimen retrieval bag was removed. The fascia to the left of the umbilicus was closed with 0 Vicryl. The skin incisions were closed with iris. Sterile dressings were applied. He tolerated the procedure without difficulty and was taken recovery room in satisfactory condition. According to or personnel, all counts were correct.
[2020-04-29] MEDS: HYDROmorphone 0.5 MG/0.5 ML SYRINGE IVP PRN ×2 (19:53→21:20)
[2020-04-29] MEDS: MORPHINE SULFATE 4 MG/ML SYRINGE IV PRN (20:26)
[2020-04-29] MEDS: FAMOTIDINE 20 MG TAB PO SCH (20:30)
[2020-04-29] MEDS: PIPERACILLIN-TAZOBACTAM 3.375 GM in SODIUM CHLORIDE 0.9% 100 ML IVPB SCH (20:30)
[2020-04-29] MEDS: D5-0.45% NACL WITH KCL 20MEQ/L 1,000 ML IV SCH (23:58)
[2020-04-29] MEDS: KETOROLAC 15 MG/ML 1 ML VIAL IVP SCH (23:59)
[2020-04-30] MEDS: HYDROmorphone 0.5 MG/0.5 ML SYRINGE IVP PRN ×4 (01:47→22:30)
[2020-04-30] MEDS: MORPHINE SULFATE 4 MG/ML SYRINGE IV PRN (03:31)
[2020-04-30] MEDS: KETOROLAC 15 MG/ML 1 ML VIAL IVP SCH ×3 (05:04→17:49)
[2020-04-30] MEDS: PIPERACILLIN-TAZOBACTAM 3.375 GM in SODIUM CHLORIDE 0.9% 100 ML IVPB SCH ×3 (05:04→20:02)
[2020-04-30 07:17] LABS: Glucose,Whole Blood 133 mg/dL (75-99)
[2020-04-30 07:54] LABS: HCT 46.1 % (39.0-53.0); HGB 14.6 gm/dL (13.0-17.5); MCH 27.6 pg (25.0-35.0); MCHC 31.7 g/dL (31.0-37.0); MCV 87.1 fL (80.0-100.0); Mean Platelet Volume 6.4; Platelet Count 173 k/uL (150-450); RBC 5.29 m/uL (4.30-5.90); RDW 13.4 % (11.5-15.5); WBC 6.6 k/uL (3.8-10.6)
[2020-04-30] MEDS: FAMOTIDINE 20 MG TAB PO SCH ×2 (08:18→20:03)
[2020-04-30 08:51] LABS: Band Neutrophils % 13 %; Basophils # (M) 0.07 k/uL (0-0.2); Lymphocytes # (M) 1.12 k/uL (1.0-4.8); Monocytes # (M) 0.79 k/uL (0-1.0); Neutrophils % (M) 57 %; Nucleated Red Blood Cells 0 /100 WBC (0-0); Total Cells Counted 100
[2020-04-30] MEDS: SODIUM CHLORIDE 0.9% 1,000 ML IV SCH (09:33)
--- NOTE | 2020-04-30 11:56 | P.PN ---
Subjective Progress Note Date: 04/30/20 Principal diagnosis: Appendicitis The patient is postoperative day 1 laparoscopic appendectomy for gangrenous appendicitis. He was having postoperative urinary retention and has been straight catheterized for large amount once. The patient says he usually has nocturia 3 times per night. Denies any blood in the urine or frequent urinary tract infections. He doesn't have much of an appetite. No nausea. Objective - Vital Signs Vital signs: Vital Signs Temp 99.9 F H 04/30/20 07:00 Pulse 84 04/30/20 07:00 Resp 18 04/30/20 07:00 BP 104/62 04/30/20 07:00 Pulse Ox 96 04/30/20 07:00 Intake & Output 04/29/20 04/30/20 04/30/20 18:59 06:59 18:59 Intake Total 1600 920 Output Total 310 800 Balance 1600 610 -800 Weight 102.058 kg 102.058 kg Intake: IV 1600 200 Intake, IV Titration 720 Amount D5-0.45% NaCl with KCl 400 20Meq/l 1,000 ml @ 75 mls /hr IV .[id number] ADELINA Rx#: [id number] Piperacillin-Tazobactam 3 200 .375 gm In Sodium Chloride 0.9% 100 ml @ 25 mls/hr IVPB Q8H ADELINA Rx#: [id number] Sodium Chloride 0.9% 1, 120 000 ml @ 60 mls/hr IV . [id number] ADELINA Rx#:[id number] Output: Urine 300 800 Uretheral (Lim) 800 Estimated Blood Loss 10 - Constitutional General appearance: Present: cooperative - Respiratory Respiratory: bilateral: CTA, diminished (Mildly at the bases) - Cardiovascular Rhythm: regular - Gastrointestinal General gastrointestinal: Present: decreased bowel sounds, soft Localized gastrointestinal: surgical scar: diffuse (Dressings intact clean and dry) - Labs CBC & Chem 7: 04/30/20 07:10 04/29/20 14:10 Labs: Abnormal Lab Results - Last 24 Hours (Table) 04/29/20 04/29/20 04/29/20 Range/Units 14:10 14:10 14:10 WBC 11.1 H (3.8-10.6) k/uL Neutrophils # 9.4 H (1.3-7.7) k/uL Lymphocytes # 0.8 L (1.0-4.8) k/uL Sodium 135 L (137-145) mmol/L BUN 24 H (9-20) mg/dL Glucose 164 H (74-99) mg/dL POC Glucose (mg/dL) (75-99) mg/dL Urine Protein Trace H (Negative) 04/30/20 Range/Units 07:09 WBC (3.8-10.6) k/uL Neutrophils # (1.3-7.7) k/uL Lymphocytes # (1.0-4.8) k/uL Sodium (137-145) mmol/L BUN (9-20) mg/dL Glucose (74-99) mg/dL POC Glucose (mg/dL) 133 H (75-99) mg/dL Urine Protein (Negative) Assessment and Plan (1) Acute appendicitis Current Visit: Yes Status: Acute Code(s): K35.80 - UNSPECIFIED ACUTE APPENDICITIS SNOMED Code(s): 36855296 Plan: The appendix was gangrenous and falling apart during the operation. I would keep him on IV antibiotics for a couple of more days and send him home on oral antibiotics. Typically the patient has nocturia 3. I'll start him on some Flomax. He'll be straight catheterized when necessary. Multimodal pain control including Toradol, tramadol and Dilaudid as needed. Questions were encouraged and answered
[2020-04-30] MEDS: D5-0.45% NACL WITH KCL 20MEQ/L 1,000 ML IV SCH (15:40)
[2020-04-30] MEDS: TAMSULOSIN 0.4 MG CAP.ER.24H PO SCH (17:49)
[2020-05-01] MEDS: KETOROLAC 15 MG/ML 1 ML VIAL IVP SCH ×5 (00:03→23:59)
[2020-05-01] MEDS: SODIUM CHLORIDE 0.9% 1,000 ML IV SCH ×2 (01:22→17:36)
[2020-05-01] MEDS: D5-0.45% NACL WITH KCL 20MEQ/L 1,000 ML IV SCH ×2 (01:44→14:31)
[2020-05-01] MEDS: PIPERACILLIN-TAZOBACTAM 3.375 GM in SODIUM CHLORIDE 0.9% 100 ML IVPB SCH ×3 (03:59→20:43)
[2020-05-01] MEDS: HYDROmorphone 0.5 MG/0.5 ML SYRINGE IVP PRN ×3 (08:32→20:48)
[2020-05-01] MEDS: FAMOTIDINE 20 MG TAB PO SCH ×2 (08:33→20:43)
--- NOTE | 2020-05-01 11:32 | P.PN ---
Subjective Progress Note Date: 05/01/20 Principal diagnosis: Appendicitis The patient is postoperative day 2 laparoscopic appendectomy for acute gangrenous appendicitis. He is complaining of a cough. He has been able to urinate. He has no appetite. No nausea or vomiting. He is ambulating in the room. Objective - Vital Signs Vital signs: Vital Signs Temp 98.1 F 05/01/20 07:00 Pulse 110 H 05/01/20 07:00 Resp 18 05/01/20 07:00 BP 116/81 05/01/20 07:00 Pulse Ox 95 05/01/20 07:00 Intake & Output 04/30/20 05/01/20 05/01/20 18:59 06:59 18:59 Intake Total 850 450 Output Total 800 750 Balance 50 -300 Intake: Intake, IV Titration 850 450 Amount D5-0.45% NaCl with KCl 750 300 20Meq/l 1,000 ml @ 75 mls /hr IV .[id number] ADELINA Rx#: [id number] Piperacillin-Tazobactam 3 100 150 .375 gm In Sodium Chloride 0.9% 100 ml @ 25 mls/hr IVPB Q8H ADELINA Rx#: [id number] Output: Urine 800 750 Uretheral (Lim) 800 Other: Voiding Method Toilet Toilet # Voids 2 - Constitutional General appearance: Present: cooperative - Respiratory Respiratory: bilateral: diminished (Markedly diminished bilaterally. No rales or rhonchi. Doing very poorly on his incentive spirometry, less than 250) - Gastrointestinal General gastrointestinal: Present: decreased bowel sounds, distended Localized gastrointestinal: surgical scar: diffuse (Incisions intact clean and dry) - Labs CBC & Chem 7: 04/30/20 07:10 04/29/20 14:10 Labs: Microbiology - Last 24 Hours (Table) 04/29/20 15:46 Blood Culture - Preliminary Blood No Growth after 24 hours Assessment and Plan (1) Acute appendicitis Current Visit: Yes Status: Acute Code(s): K35.80 - UNSPECIFIED ACUTE APPENDICITIS SNOMED Code(s): 35645796 (2) Atelectasis Current Visit: Yes Status: Acute Code(s): J98.11 - ATELECTASIS SNOMED Code(s): 83366944 (3) Ileus following gastrointestinal surgery Current Visit: No Status: Acute Code(s): K91.3 - POSTPROCEDURAL INTESTINAL OBSTRUCTION * DO NOT USE * SNOMED Code(s): 117126063 Plan: The postoperative urinary retention has resolved. The patient has an expected ileus. The patient has a history of ileus after hernia surgery in the past. We'll keep the IV going since he is not taking in much orally. He is doing very poorly was this incentive spirometry. Encourage the patient to use his incentive spirometry, I explained that not taking the deep breaths will predispose him to pneumonia. Encouraged good pain control to help with the atelectasis and hesitancy to take the breast
[2020-05-01 12:05] LABS: MCH 28.3 pg (25.0-35.0); MCHC 33.4 g/dL (31.0-37.0); MCV 84.8 fL (80.0-100.0); Platelet Count 178 k/uL (150-450); RDW 13.4 % (11.5-15.5); WBC 6.1 k/uL (3.8-10.6)
[2020-05-01 12:11] LABS: African American GFR (CKD) >90 (>60 ml/min/1.73 sqM); Anion Gap 12 mmol/L; Blood Urea Nitrogen 21 mg/dL (9-20); Calcium 8.3 mg/dL (8.4-10.2); Carbon Dioxide 24 mmol/L (22-30); Chloride 98 mmol/L (98-107); Glucose 143 mg/dL (74-99); Non-African American GFR(CKD) >90 (>60 ml/min/1.73 sqM); Potassium 4.1 mmol/L (3.5-5.1); Sodium 134 mmol/L (137-145)
[2020-05-01] MEDS: TAMSULOSIN 0.4 MG CAP.ER.24H PO SCH (17:32)
[2020-05-02] MEDS: D5-0.45% NACL WITH KCL 20MEQ/L 1,000 ML IV SCH ×2 (02:10→07:16)
[2020-05-02] MEDS: PIPERACILLIN-TAZOBACTAM 3.375 GM in SODIUM CHLORIDE 0.9% 100 ML IVPB SCH ×2 (03:52→12:04)
[2020-05-02] MEDS: KETOROLAC 15 MG/ML 1 ML VIAL IVP SCH ×2 (05:36→12:04)
[2020-05-02] MEDS: SODIUM CHLORIDE 0.9% 1,000 ML IV SCH (07:15)
[2020-05-02 07:42] LABS: HGB 12.6 gm/dL (13.0-17.5); MCH 28.1 pg (25.0-35.0); MCHC 33.2 g/dL (31.0-37.0); MCV 84.7 fL (80.0-100.0); Mean Platelet Volume 6.4; Platelet Count 179 k/uL (150-450); RBC 4.49 m/uL (4.30-5.90); RDW 13.2 % (11.5-15.5); WBC 5.5 k/uL (3.8-10.6)
[2020-05-02 08:01] LABS: African American GFR (CKD) >90 (>60 ml/min/1.73 sqM); Anion Gap 10 mmol/L; Blood Urea Nitrogen 19 mg/dL (9-20); Calcium 8.4 mg/dL (8.4-10.2); Carbon Dioxide 25 mmol/L (22-30); Chloride 100 mmol/L (98-107); Glucose 135 mg/dL (74-99); Non-African American GFR(CKD) >90 (>60 ml/min/1.73 sqM); Potassium 3.9 mmol/L (3.5-5.1); Sodium 135 mmol/L (137-145)
[2020-05-02] MEDS: FAMOTIDINE 20 MG TAB PO SCH (08:10)
--- NOTE | 2020-05-02 09:48 | CDI ---
Documentation Clarification Form Date: 05/02/2020 09:41:32 AM From: Jocelin Buchanan CCS, CCDS Admit Date: 04/29/2020 03:16:00 PM Patient Name: Flako Berry Visit Number: [id number] Discharge Date: ATTENTION: The Clinical Documentation Specialists (CDI) and [facility] Coding Staff appreciate your assistance in clarifying documentation. Please respond to the clarification below the line at the bottom and electronically sign. The CDI & [facility] Coding staff will review the response and follow-up if needed. Please note: Queries are made part of the Legal Health Record. If you have any questions, please contact the author of this message via ITS. Dr. Kristina Damon: Per the 04/30 General Surgery Progress Note: "He was having postoperative urinary retention and has been straight catheterized for large amount once." Per the 04/30 General Surgery Progress Note: "The postoperative urinary retention has resolved." Patients Admitting Diagnosis: Acute mild appendicitis Post-Operative Diagnosis: Acute gangrenous appendicitis Procedure performed 04/29: Laparoscopic appendectomy History/Risk Factors: Umbilical hernia status post repair with possible postoperative infection. ADD/HD. Clinical Indicators: Presented to the ED on 04/29 with RLQ Abdominal Pain, admitted with acute appendicitis. Treatment: IV Morphine, IV fluid bolus 1,000 mls @ 999/hr, IV Zofran, IV Zosyn. In order to accurately reflect this patients severity of illness, please clarify if the patient's postoperative urinary retention: -is a complication of surgical procedure -is an expected outcome of the surgical procedure -is related to co-morbid condition(s) of -Other please specify -Unable to determine (Last Revision: October 2019) common after general anesthesia MTDD
--- NOTE | 2020-05-02 09:55 | CDI ---
Documentation Clarification Form Date: 05/02/2020 09:48:40 AM From: Jocelin Buchanan CCS, CCDS Admit Date: 04/29/2020 03:16:00 PM Patient Name: Flaok Berry Visit Number: [id number] Discharge Date: ATTENTION: The Clinical Documentation Specialists (CDI) and [facility] Coding Staff appreciate your assistance in clarifying documentation. Please respond to the clarification below the line at the bottom and electronically sign. The CDI & [facility] Coding staff will review the response and follow-up if needed. Please note: Queries are made part of the Legal Health Record. If you have any questions, please contact the author of this message via ITS. Dr. Kristina Damon: Per the General Surgery Progress Note 05/01: "Atelectasis. Plan: Encouraged good pain control to help with the atelectasis and hesitancy to take the breath." Patients Admitting Diagnosis: Acute mild appendicitis Post-Operative Diagnosis: Acute gangrenous appendicitis Procedure performed 04/29: Laparoscopic appendectomy History/Risk Factors: Umbilical hernia status post repair with possible postoperative infection. ADD/HD. Clinical Indicators: Presented to the ED on 04/29 with RLQ Abdominal Pain, admitted with acute appendicitis. VS 04/29 preoperative: R 20, PO 97 RA VS 04/29 postoperative: R 22, PO 92 6L nc - 90 2Lnc. VS 05/02: R 18, PO 89 RA Treatment: Incentive Spirometry, O2 6 L - 2L nc, IV Morphine, IV fluid bolus 1,000 mls @ 999/hr, IV Zofran, IV Zosyn. In order to accurately reflect this patients severity of illness, please clarify if the patient's postoperative urinary retention: -is a complication of surgical procedure -is an expected outcome of the surgical procedure -is related to co-morbid condition(s) of -Other please specify -Unable to determine (Last Revision: October 2019) MTDD
[2020-05-02] MEDS ORDERED: Magnesium Replacement Protocol 1 EACH MISC MISCELLANE PRN (10:49)
[2020-05-02] MEDS ORDERED: Potassium Replacement Protocol 1 EACH MISC MISCELLANE PRN (10:49)
--- NOTE | 2020-05-02 12:38 | P.PN ---
Subjective Progress Note Date: 05/02/20 Principal diagnosis: Appendicitis The patient is doing better today. He had a bowel movement. Doing about 500 MLS on his incentive spirometer. He is passing flatus and has had a bowel movement. Objective - Vital Signs Vital signs: Vital Signs Temp 98.5 F 05/02/20 07:00 Pulse 94 05/02/20 07:00 Resp 18 05/02/20 07:00 BP 126/88 05/02/20 07:00 Pulse Ox 97 05/02/20 08:40 Intake & Output 05/01/20 05/02/20 05/02/20 18:59 06:59 18:59 Intake Total 750 Balance 750 Intake: Intake, IV Titration 750 Amount D5-0.45% NaCl with KCl 750 20Meq/l 1,000 ml @ 75 mls /hr IV .[id number] [facility] Rx#: [id number] Other: Voiding Method Toilet Toilet Toilet # Voids 1 1 - Constitutional General appearance: Present: average body habitus, no acute distress - Respiratory Respiratory: bilateral: CTA, diminished (Diminished at the bases but much impro nevin from yesterday) - Gastrointestinal General gastrointestinal: Present: decreased bowel sounds (Bowel sounds more active), distended (Softer) Localized gastrointestinal: surgical scar: diffuse (Incisions clean and dry) - Labs CBC & Chem 7: 05/02/20 07:25 05/02/20 07:25 Labs: Abnormal Lab Results - Last 24 Hours (Table) 05/02/20 05/02/20 Range/Units 07:25 07:25 Hgb 12.6 L (13.0-17.5) gm/dL Hct 38.0 L (39.0-53.0) % Sodium 135 L (137-145) mmol/L Glucose 135 H (74-99) mg/dL Microbiology - Last 24 Hours (Table) 04/29/20 15:46 Blood Culture - Preliminary Blood No Growth after 48 hours Assessment and Plan (1) Acute appendicitis Current Visit: Yes Status: Acute Code(s): K35.80 - UNSPECIFIED ACUTE APPENDICITIS SNOMED Code(s): 97689353 (2) Atelectasis Current Visit: Yes Status: Acute Code(s): J98.11 - ATELECTASIS SNOMED Code(s): 34810595 (3) Ileus following gastrointestinal surgery Current Visit: No Status: Acute Code(s): K91.3 - POSTPROCEDURAL INTESTINAL OBSTRUCTION * DO NOT USE * SNOMED Code(s): 827526406 Plan: The patient's clinically improving. If he is able to do better with his incentive spirometry will be discharged home later today on oral antibiotics. Postoperative instructions were discussed with him.
[2020-05-02 14:44] VITALS: BP 132/93; PULSE 102; RESP 16; TEMP 97
--- NOTE | 2020-05-02 17:29 | P.CONS ---
History of Present Illness - Reason for Consult Consult date: 04/25/20 Medical management atelectasis, gastroesophageal reflux disease Requesting physician: Kristina Damon - Chief Complaint Abdominal pain, acute - History of Present Illness This is a 44-year-old gentleman, history of umbilical hernia repair, follows with Dr. Александр Gaona as PCP, presented to the ER with right lower quadrant abdominal pain, acute gangrenous appendicitis.Status post laparoscopic appendectomy. Surgical biopsy results pending.Tolerated procedure well. Pain controlled. Reports formed bowel movement today. Ambulating, tolerating exertion well. Denies nausea or vomiting or diarrhea. Denies chest pain, palpitations or shortness of breath. Maintaining O2 sats in the 90s on room air. Incentive spirometer up to 500. Mild tachycardia, low 100s. Afebrile, no rmal WBC. Review of Systems Constitutional: Denied any fatigue denied any fever. Cardio vascular: denied any chest pain, palpitations Gastrointestinal denied any nausea vomiting Pulmonary: Denied any shortness of breath cough Neurologic denied any new focal deficits ROS Statement: Those systems with pertinent positive or pertinent negative responses have been documented in the HPI. ROS Other: All systems not noted in ROS Statement are negative. Past Medical History Past Medical History: GERD/Reflux Additional Past Medical History / Comment(s): HX OF SPINAL FUSION-OCCASIONAL RODERICK K PAIN, UMBILICAL HERNIA., kidney stones, HIV History of Any Multi-Drug Resistant Organisms: None Reported Past Surgical History: Back Surgery Additional Past Surgical History / Comment(s): SPINAL FUSION 2013 (LUMBAR), umbilical hermia Past Anesthesia/Blood Transfusion Reactions: No Reported Reaction Past Psychological History: ADD/ADHD Smoking Status: Never smoker Past Alcohol Use History: Occasional Past Drug Use History: None Reported - Past Family History Mother Family Medical History: No Reported History Medications and Allergies Home Medications Medication Instructions Recorded Confirmed Type Lisdexamfetamine Dimesylate 60 mg PO DAILY 02/29/16 04/29/20 History [Vyvanse] Elviteg/Namita/Emtric/Tenofo Dis 1 tab PO DAILY 04/29/20 04/29/20 History [Stribild Tablet] Mometasone Furoate [Nasonex Nasal 2 spray EA NOSTRIL DAILY 04/29/20 04/29/20 History [place]] Amoxic-Pot Clav 875-125Mg 1 tab PO Q12HR 7 Days #6 tab 05/02/20 Rx [Augmentin 875-125] HYDROcodone/APAP 5-325MG [[place] 1 - 2 tab PO Q4H PRN #15 tab 05/02/20 Rx 5-325] Allergies Allergy/AdvReac Type Severity Reaction Status Date / Time codeine AdvReac Nausea & Verified 04/29/20 16:53 Vomiting, Rash/Hives Physical Exam Vitals: Vital Signs Temp Pulse Resp BP Pulse Ox 05/02/20 16:42 95 05/02/20 14:43 97.0 F L 102 H 16 132/93 93 L 05/02/20 08:40 97 05/02/20 07:00 98.5 F 94 18 126/88 89 L 05/02/20 03:10 17 05/02/20 01:19 98.1 F 107 H 106/69 92 L 05/01/20 23:14 17 05/01/20 19:05 98.4 F 108 H 17 133/90 92 L Intake and Output 05/02/20 05/02/20 05/02/20 06:59 14:59 22:59 Other: Voiding Method Toilet # Voids 1 1 PHYSICAL EXAM: VITAL SIGNS: As above GENERAL: A daily At bedside, no acute distress HEENT: Conjunctivae normal. eyes normal. NECK: No JVD. No thyroid enlargement. No LNs CARDIOVASCULAR: S1, S2 regular.. No murmur RESPIRATION: Breath sounds essentially clear, diminished in the bases. No rhonchi or crackles. No bronchial breathing. ABDOMEN: Soft, status post surgery, surgical sites clean, dry, no drainage. No guarding.Bowel sounds heard. LEGS: No edema, clubbing or cyanosis no calf tenderness, 2+ peripheral pulses PSYCHIATRY: Alert and oriented X3, mood and affect normal. NERVOUS SYSTEM: Cranial N 2-12 grossly normal. Moves all 4 limbs. No focal deficits. Strength and sensation grossly intact.. Skin: Warm and dry, no rash, normal turgor. Lymphatic system. No LN neck axilla. Results CBC & Chem 7: 05/02/20 07:25 05/02/20 07:25 Labs: Abnormal Lab Results - Last 24 Hours (Table) 05/02/20 05/02/20 Range/Units 07:25 07:25 Hgb 12.6 L (13.0-17.5) gm/dL Hct 38.0 L (39.0-53.0) % Sodium 135 L (137-145) mmol/L Glucose 135 H (74-99) mg/dL Microbiology - Last 24 Hours (Table) 04/29/20 15:46 Blood Culture - Preliminary Blood No Growth after 48 hours Assessment and Plan Assessment: Abdominal pain, status post laparoscopic appendectomy secondary to acute gangrenous appendicitis Atelectasis Tachycardia, mild secondary to the above Gastroesophageal reflux disease Umbilical hernia repair, history of Plan: Continue on current medication regime ,monitoring and symptomatic treatment. Aggressive pulmonary toileting, with incentive spirometer reinforced. Obtain O2 sat on room air after ambulation-RN obtaining. Increase ambulation as advised. Antibiotics/pain management as per primary. Follow-up with PCP in 1 week. Further recommendations to follow. Thank you Dr. Damon for the consult. The impression and plan of care has been dictated as directed. : I performed a history and examination of this patient, discussed the same with the dictator. I agree with the dictator's note ,documented as a scribe. Any additional findings or plans will be noted.
--- NOTE | 2020-05-03 12:02 | P.DS ---
Providers Date of admission: 04/29/20 15:16 Expected date of discharge: 05/02/20 Attending physician: Kristina Damon Consults: 05/01/20 11:27 Consult Physician Routine Consulting Provider: Александр Gaona Consult Reason/Comments: Medical management, atelectasis Do you want consulting provider notified?: Yes Primary care physician: Александр Gaona - Discharge Diagnosis(es) (1) Acute appendicitis Status: Acute (2) Atelectasis Status: Acute (3) Ileus following gastrointestinal surgery Status: Acute (4) Postoperative urinary retention Status: Acute Hospital Course: The patient presented with acute abdominal pain. Work-up in the ED was suggestive of acute appendicitis.He was taken to the OR where he underwent a laparoscopic appendectomy. He had gangrenous appendicitis. He was given antibiotics along with DVT and ulcer prophylaxis. He was given incentive spirometry. He had an episode of urinary retention which required catheterization once. That resolved quickly. He had on an ileus which was not unexpected. He also developed atelectasis and was poorly compliant in using his incentive spirometry. Gradually he was able to be increased on his diet and activity. Patient Condition at Discharge: Good Plan - Discharge Summary Discharge Rx Participant: No New Discharge Prescriptions: New Amoxic-Pot Clav 875-125Mg [Augmentin 875-125] 1 tab PO Q12HR 7 Days #6 tab HYDROcodone/APAP 5-325MG [[place] 5-325] 1 - 2 tab PO Q4H PRN #15 tab PRN Reason: Pain No Action Lisdexamfetamine Dimesylate [Vyvanse] 60 mg PO DAILY Mometasone Furoate [Nasonex Nasal [place]] 2 spray EA NOSTRIL DAILY Elviteg/Namita/Emtric/Tenofo Dis [Stribild Tablet] 1 tab PO DAILY Discharge Medication List Lisdexamfetamine Dimesylate [Vyvanse] 60 mg PO DAILY 02/29/16 [History] Elviteg/Namita/Emtric/Tenofo Dis [Stribild Tablet] 1 tab PO DAILY 04/29/20 [History] Mometasone Furoate [Nasonex Nasal [place]] 2 spray EA NOSTRIL DAILY 04/29/20 [History] Amoxic-Pot Clav 875-125Mg [Augmentin 875-125] 1 tab PO Q12HR 7 Days #6 tab 05/02/20 [Rx] HYDROcodone/APAP 5-325MG [[place] 5-325] 1 - 2 tab PO Q4H PRN #15 tab 05/02/20 [Rx] Follow up Appointment(s)/Referral(s): Kristina Damon DO [Doctor of Osteopathic Medicine] - 1 Week (office closed Please call to make appointment) Александр Gaona DO [Primary Care Provider] - 1 Week (office not answering. Please call to make appointment) Patient Instructions/Handouts: Laparoscopic Appendectomy (DC) Activity/Diet/Wound Care/Special Instructions: IS q1h WA as prev. advised, O2 sat on RA after ambulation pending You may shower. No swiming or tub bath for 1 week. Light dressing to incisions as needed. Call if you develop concerns about the wounds, fever or chills, nausea or vomiting. Continue to use the incentive spirometry. Discharge Disposition: HOME SELF-CARE
--- NOTE | 2020-05-04 09:29 | CDI ---
Documentation Clarification Form Date: 05/02/2020 09:48:00 AM From: Jocelin Buchanan CCS, CCDS Admit Date: 04/29/2020 03:16:00 PM Patient Name: Flako Berry Visit Number: [id number] Discharge Date: 05/02/2020 04:50:00 PM ATTENTION: The Clinical Documentation Specialists (CDI) and [facility] Coding Staff appreciate your assistance in clarifying documentation. Please respond to the clarification below the line at the bottom and electronically sign. The CDI & [facility] Coding staff will review the response and follow-up if needed. Please note: Queries are made part of the Legal Health Record. If you have any questions, please contact the author of this message via ITS. Dr. Kristina Damon: Per the General Surgery Progress Note 05/01: "Atelectasis. Plan: Encouraged good pain control to help with the atelectasis and hesitancy to take the breath." Patients Admitting Diagnosis: Acute mild appendicitis Post-Operative Diagnosis: Acute gangrenous appendicitis Procedure performed 04/29: Laparoscopic appendectomy History/Risk Factors: Umbilical hernia status post repair with possible postoperative infection. ADD/HD. Clinical Indicators: Presented to the ED on 04/29 with RLQ Abdominal Pain, admitted with acute appendicitis. VS 04/29 preoperative: R 20, PO 97 RA VS 04/29 postoperative: R 22, PO 92 6L nc - 90 2Lnc. VS 05/02: R 18, PO 89 RA Treatment: Incentive Spirometry, O2 6 L - 2L nc, IV Morphine, IV fluid bolus 1,000 mls @ 999/hr, IV Zofran, IV Zosyn. In order to accurately reflect this patients severity of illness, please clarify if the patient's postoperative atelectasis: is a complication of surgical procedure x is an expected outcome of the surgical procedure is related to co-morbid condition(s) of Other please specify Unable to determine (Last Revision: October 2019) MTDD
== END 2020-05-02 16:50 | disposition home or self-care (01) | DRG 342 ==
LOC: EC 13:37 → 4SSUR 15:16
PROVIDERS: ADMIT Surgery; ATTEND Surgery
PROC: 0DTJ4ZZ Resection of Appendix, Percutaneous Endoscopic Approach (ICD-10-PCS; principal; 2020-04-29 17:30)
DX: K35.891 Other acute appendicitis without perforation, with gangrene (principal); J98.11 Atelectasis; K56.7 Ileus, unspecified; K21.9 Gastro-esophageal reflux disease without esophagitis; F90.9 Attention-deficit hyperactivity disorder, unspecified type; R00.0 Tachycardia, unspecified; R33.9 Retention of urine, unspecified; Z91.19 Patient's noncompliance with other medical treatment and regimen; Z79.899 Other long term (current) drug therapy; Z87.442 Personal history of urinary calculi; Z98.1 Arthrodesis status; Z98.890 Other specified postprocedural states
CPT/HCPCS: 36415; 74177; 80048; 80053; 81003; 82150; 83605; 83690; 83735; 85025; 85027; 85610; 85730; 87040; 88304; 94760; 96361; 96365; 96375; 96376; 99285

== ENCOUNTER → 2020-05-26 | Outpatient (CLI) | payer BC | END | disposition home or self-care (01) | LOC: LABWHC1 13:40 | PROVIDERS: ATTEND Family Medicine | DX: Z03.818 Encounter for observation for suspected exposure to other biological agents ruled out (principal) | CPT/HCPCS: U0003; C9803 ==

== ENCOUNTER → 2020-10-12 | Outpatient (CLI) | payer BC ==
[2020-10-12 19:27] LABS: Basophils # (A) 0.05 X 10*3/uL (0.00-0.10); Basophils % (A) 0.9 %; Eosinophils # (A) 0.25 X 10*3/uL (0.04-0.35); Eosinophils % (A) 4.5 %; HCT 48.5 % (39.6-50.0); HGB 16.2 g/dL (13.0-17.0); Lymphocytes # (A) 1.54 X 10*3/uL (0.90-5.00); Lymphocytes % (A) 27.9 %; MCH 27.5 pg (27.0-32.0); MCHC 33.4 g/dL (32.0-37.0); MCV 82.3 fL (80.0-97.0); Mean Platelet Volume 9.1 fL (9.5-12.2); Monocytes # (A) 0.47 X 10*3/uL (0.20-1.00); Monocytes % (A) 8.5 %; Neutrophils # (A) 3.14 X 10*3/uL (1.80-7.70); Neutrophils % (A) 57.1 %; Platelet Count 202 X 10*3/uL (140-440); RBC 5.89 X 10*6/uL (4.40-5.60); WBC 5.51 X 10*3/uL (4.50-10.00)
[2020-10-13 00:35] LABS: African American GFR (CKD) 103.4 (60.0-200.0); Albumin 5.2 g/dL (3.80-4.90); Albumin/Globulin Ratio 2.17 (1.60-3.17); Calcium 9.9 mg/dL (8.7-10.3); Globulin 2.4 g/dL (1.6-3.3); Non-African American GFR(CKD) 89.2 (60.0-200.0); Potassium 4.6 mmol/L (3.5-5.5); Total Bilirubin 0.4 mg/dL (0.3-1.2); Total Protein 7.6 g/dL (6.2-8.2)
[2020-10-13 14:07] LABS: T4/T8 Ratio (CD4:CD8) 0.5 (1.0-3.7)
[2020-10-14 03:41] LABS: HIV-1 RNA DETECTED (Not detected); HIV-1 RNA, Quant <40 Copies/mL (<40)
== END | disposition home or self-care (01) ==
LOC: LABWHC1 12:19
PROVIDERS: ATTEND Internal Medicine Infectious Disease
DX: B20 Human immunodeficiency virus [HIV] disease (principal)
CPT/HCPCS: 36415; 80053; 85025; 86360; 87536

== ENCOUNTER → 2021-05-10 | Outpatient (CLI) | payer BC ==
--- NOTE | 2021-05-10 15:28 | XR ---
2 view abdomen HISTORY: Constipation 2 views the abdomen submitted and correlated to CT abdomen pelvis 04/29/2020 Multiple calcifications are seen over the left kidney as noted on prior CT. Lung bases are clear. The re is no evident pneumoperitoneum or bowel obstruction. Postop change noted at the level of the cecum likely status post appendectomy. There is retained fecal debris throughout the distribution of the c olon. There is a levoscoliosis. IMPRESSION: Findings consistent with fecal stasis. Left-sided nephrolithiasis. Postop change.
== END | disposition home or self-care (01) ==
LOC: RADXRMAIN 10:30
PROVIDERS: ATTEND Nurse Practitioner Family
DX: N20.0 Calculus of kidney (principal); K56.41 Fecal impaction
CPT/HCPCS: 74019

== ENCOUNTER → 2021-12-06 | Outpatient (CLI) | payer BC ==
--- NOTE | 2021-12-06 12:34 | XR ---
Lumbar spine HISTORY: Low back pain, trauma 2 days prior 3 views of the lumbar spine Lumbar vertebral bodies show preserved height, bone mineralization. There is a slight spinal curvatur e which could be positional. Loss of disc height present L4-5, L5-S1. Sclerosis in the posterior [place] ents is consistent with facet arthropathy. Suspect some sacralization of L5. IMPRESSION: No fracture or subluxation. Slight spinal curvature, there may be underlying degenerative disc disease, facet arthropathy
== END | disposition home or self-care (01) ==
LOC: RADXRMAIN 11:22
PROVIDERS: ATTEND Nurse Practitioner Family
DX: M43.26 Fusion of spine, lumbar region (principal); W19.XXXA Unspecified fall, initial encounter
CPT/HCPCS: 72100

== ENCOUNTER → 2022-02-01 | Outpatient (CLI) | payer BC ==
[2022-02-01 08:43] VITALS: BP 156/103; PULSE 88; RESP 18; TEMP 97.9
--- NOTE | 2022-02-01 08:50 | P.CON ---
Consult Note - . Consult date: 02/01/22 Assessment/Plan:: HISTORY OF PRESENT ILLNESS: 46 yr old male as a referral from Dr. Mccarty NPC presents today with chronic & severe right sided LBP secondary to DDD and facet arthropathy for evaluation. Pt states his pain level is 8/ 10 in intensity, dull, achy, knot like intense pressure in the lower aspect of his lumbar spine/tailbone region, slightly R of midline without radiation of pain. Pain is provoked with bending, lifting or other activities. Pain is relieved with medications (Alpha Lipoic Acid), topical Darius Emu, PT which will start on 02/06/22, alternating heat & ice, laying supine and rest. Past Medical History: HTN, GERD, HIV, ADD/ ADHD Past Surgical History: Lumbar Diskectomy, Umbilical Hernia Repair, Nephrolithiasis Social History: Never smoker, Occasional ETOH use, No illicit drug use. Family History: Mother- No Reported History All: Codeine Meds: See list REVIEW OF ORGAN SYSTEMS: CONSTITUTIONAL: No fevers or chills. No recent weight loss. HEENT: No visual acuity loss, eye pain, difficulties with hearing. No nosebleeds. No difficulty swallowing. RESPIRATORY: Denies any troubles with breathing or dyspnea on exertion. CARDIOVASCULAR: Denies any chest pain, palpitations, or recent heart attacks. GASTROINTESTINAL: Denies fatty food intolerance. Has change in bowel habits and gas bloat. GENITOURINARY: Denies any blood in urine. Has increased urinary frequency. NEUROLOGICAL: + numbness and tingling along the distal extremities. No seizure disorders or headaches. MUSCULOSKELETAL: + back pain SKIN: No skin cancer. No rash. PSYCHIATRIC: Denies current depression or suicidal thoughts. ENDOCRINE: Denies current thyroid disorders. Denies any blood sugar glucose intolerance. HEME/LYMPHATIC: Denies any lumps and bumps around the neck. History of deep venous thrombosis. ALLERGY/IMMUNOLOGY: No immunoglobulin therapy. No immune deficiencies. BREAST: Denies current breast lumps, pain or nipple discharge. Physical Examinations : Constitutional : Cooperative , not in acute distress . HEENT: Neck supple. No Lymphadenopathy. Normal thyroid size . Eyes no ptosis , no icterus, no photophobia . Hearing intact. Normal oropharynx. No Thrush. Respiratory : Chest clear to auscultations bilaterally. No wheezing. No rhonchi. Cardiovascular : Regular rate and rhythm , S1 / S2. No S3 . No S4. Gastrointestinal : Abdomen soft. No tenderness. Bowel sounds x 4. No organomegaly . Genitourinary : Deferred. Neurologic : Cranial nerve II to XII intact. No focal neurological deficits. Psychiatric : alert & oriented x 3. Matching mood & appropriate affect. Judgment & insight intact. Lymphatic No Lymphadenopathy. Musculoskeletal : Cervical Spine Motor strength in the deltoid and biceps: Normal right side. Normal Left side Motor strength biceps and the wrist extensors: Normal right side . Normal left side Motor strength in the triceps muscle: Normal right side. Normal left side Deep tendon reflexes: Normal at the biceps. Normal at Brachioradialis. Normal at triceps Cervical facet loading test: positive bilaterally Spurling test: positive bilaterally Neck distraction test: positive bilaterally Guillermina sign: positive bilaterally Lumbar spine Motor strength lower extremities ,thigh and legs 5/5 Right side , 5/5 Left side Deep tendon reflexes : Normal Knee Jerk. Normal Ankle Jerk Vertebral body tenderness over L5 Lumbar facet Loading Test: positive Right / positive Left Range of motion of the lumbar spine Flexion 30 degrees, extension 10 degrees Straight Leg Raise test: Left/ Right positive at <40 degree Antonieta test: positive right / positive left. Severe tenderness over the Sacroiliac joint on the Right / Left sides Gaenslen test: positive bilaterally Seated flexion test: positive bilaterally. Sacral spine : Severe tenderness over the Sacroiliac joint: right side / left side Range of motion: Flexion of the lumbar spine <60 degrees Range of motion: Extension of the lumbar spine <20 degrees Gaenslen's Test positive Dev's Test positive Antonieta test: positive right side / left side Thigh Thrust Test Sacral Thrust Test Imaging: Xrays of the Lumbar spine from 01/08/22 reviewed Assessment/ Plan : Lumbar DDD, Lumbar facet arthropathy MRI without contrast of the Lumbar spine re: M51.36 PT sessions to start on 02/06/22. Pt believes he will attend for approximately 6 weeks. [place] 5/325mg q4h prn pain #18 NR. Lidocaine 5% cream, apply to AA BID prn pain Disp 1 jar, NR. Risks, benefits of medication discussed and patient verbalized understanding. Denies aspirin or anti- coagulant use or medical history of diabetes. All questions answered. I have spent greater than 50 minutes on patient care today. Dr Roach was available by phone for the evaluation of this patient. The time was used to review the medical records including relevant urine studies and Prescription history (MAPs), review of the available imaging, evaluation and examination of the patient, coordination of care with the medical staff and if applicable referring physicians, as well as creation of the medical record PQRS Measure Charge Sheet Mode of Arrival: Ambulatory - Pain Location Right Lower Back Non-Pharmacological Interventions: Heat, Ice, Inactivity, Physical Therapy, Sitting Pharmacological Interventions: PRN Medication, Topical Medication PQRS Narrative: Smoking Status Never smoker Blood Pressure 156/103 Pain Intensity [Right Lower 8 Back] Scale Used Numeric (1 - 10) Hx Alcohol Use (MH) Yes: Occasionally Home Medications: Ambulatory Orders Lisdexamfetamine Dimesylate [Vyvanse] 60 mg PO DAILY 02/29/16 Elviteg/Namita/Emtric/Tenofo Dis [Stribild Tablet] 1 tab PO DAILY 04/29/20 Mometasone Furoate [Nasonex Nasal [place]] 2 spray EA NOSTRIL DAILY 04/29/20 Amoxic-Pot Clav 875-125Mg [Augmentin 875-125] 1 tab PO Q12HR 7 Days #6 tab 05/02/20 HYDROcodone/APAP 5-325MG [[place] 5-325] 1 - 2 tab PO Q4H PRN #15 tab 05/02/20
== END ==
LOC: PNWHC3 08:12
PROVIDERS: ATTEND Specialist
DX: M51.36 Other intervertebral disc degeneration, lumbar region (principal); M47.816 Spondylosis without myelopathy or radiculopathy, lumbar region; I10 Essential (primary) hypertension; F90.9 Attention-deficit hyperactivity disorder, unspecified type; Z88.5 Allergy status to narcotic agent
CPT/HCPCS: 99211

== ENCOUNTER → 2022-03-07 | Outpatient (CLI) | payer BC ==
--- NOTE | 2022-03-08 04:30 | MR ---
EXAMINATION TYPE: MR lumbar spine wo con DATE OF EXAM: 03/07/2022 COMPARISON: None HISTORY: Lower back pain, RLE radiculopathy S/P fall, hx surgery. Multiplanar multiecho imaging of the lumbar spine without contrast. The lumbar vertebrae have normal alignment. There is slight decreased signal in the L5-S1 disc. There is posterior disc mild herniation at L5-S1. No spinal stenosis. No lumbar paraspinal mass. No compre ssion fracture. The lumbar nerve roots appear intact. Neural foramina are fairly well maintained. IMPRESSION: There is a posterior L5-S1 lumbar disc herniation without spinal stenosis. No fracture. Disc herniat ion is slightly more on the right side and this could be clinically significant in this patient with right-sided pain.
== END | disposition home or self-care (01) ==
LOC: RADMRIMAIN 19:03
PROVIDERS: ATTEND Physician Assistant Medical
DX: M51.36 Other intervertebral disc degeneration, lumbar region (principal)
CPT/HCPCS: 72148

== ENCOUNTER → 2022-03-29 | Outpatient (CLI) | payer BC ==
[2022-03-29 13:12] VITALS: BP 143/99; PULSE 106; RESP 18; TEMP 98.4
--- NOTE | 2022-03-29 13:17 | P.PAINPG ---
PQRS Measure Charge Sheet Comment: A 46 yr old male with a history of severe and chronic low back pain secondary to lumbar degenerative disc diseases and lumbar spondylosis with facet arthropathy presents today for MRI lumbar spine results. Pain level is currently at 3/10 in intensity, constant, is dull/ achy in character without radiation of pain. Pt feels the PT is helping tremendously with eliminating radiating pain. Pain is provoked by standing/ walking for periods of 30 min or more. Pain is alleviated with PT currently w integrated massage, topicals, acupuncture, ice occasionally, repositioning and rest. Patient is currently on TigerBalm topical Patient denies any side effects of the medication(s), denies excessive drowsiness or sleepiness, denies suicidal ideation and reports that the current pain medication is helping to control the pain and improve activities of daily living. Patient denies any motor or sensory deficits. Patient denies any fever or night sweats, denies any change in the bowel movements or urination. Physical Examination: -Constitutional: Cooperative. Not in acute distress . - Neurologic: Cranial nerve II to XII intact. No focal neurological deficits. - Psychatric: Alert & oriented x 3. Matching mood & appropriate affect. Judgment and insight intact. - Musculoskeletal: Cervical spine: Muscle bulk/ tone/ strength in the bilateral upper extremities normal Vertebral body tenderness to palpation over Spurling test positive Distraction test positive Facet loading test positive Thoracic spine Muscle bulk / tone/ strength in the bilateral paraspinal muscles normal Vertebral body tender to palpation over Facet loading test positive Lumbar spine: Motor bulk/ tone/ strength lower extremities , thigh and legs : 5/5 Deep tendon reflexes : Normal Knee Jerk. Normal Ankle Jerk . Vertebral body tenderness to palpation over L5 Lumbar Facet Loading Test positive Straight Leg Raise: positive at 30 degrees right side/ left side Gaenslen's Test positive Sacral spine : Severe tenderness over the Sacroiliac joint: right side / left side Range of motion: Flexion of the lumbar spine <60 degrees Range of motion: Extension of the lumbar spine <20 degrees Gaenslen's Test positive Dev's Test positive Antonieta test: positive right side / left side Thigh Thrust Test Sacral Thrust Test Imaging: MRI without contrast of the lumbar spine from 03/07/22 reviewed Assessment and plan: Chronic low back pain secondary to lumbar degenerative disc disease , L5- S1 lumbar DH with facet arthropathy without myelopathy Recommendation of continued PT for additional 4-6 weeks, to focus on traction/ decompression of lumbar spine Re: M 51.36. He may return to our clinic on an as needed basis. Risks, benefits of procedure discussed and pt verbalized understanding. Denies anticoagulant use or medical history of diabetes. All patient questions answered MAPS reviewed and it was appropriate. I have spent less than 30 minutes on patient care today. Dr Roach was available by phone for the evaluation of this patient. The time was used to review the medical records including relevant urine studies and Prescription history (MAPs), review of the available imaging, evaluation and examination of the patient, coordination of care with the medical staff and if applicable referring physicians, as well as creation of the medical record PQRS Narrative: Smoking Status Never smoker Hx Alcohol Use (MH) Yes: Occasionally Home Medications: Ambulatory Orders Lisdexamfetamine Dimesylate [Vyvanse] 60 mg PO DAILY 02/29/16 Elviteg/Cob/Emtri/Tenofo Disop [Stribild Tablet] 1 tab PO DAILY 04/29/20 Mometasone Furoate [Nasonex Nasal [place]] 2 spray EA NOSTRIL DAILY 04/29/20 Amoxic-Pot Clav 875-125Mg [Augmentin 875-125] 1 tab PO Q12HR 7 Days #6 tab 05/02/20 HYDROcodone/APAP 5-325MG [[place] 5-325] 1 - 2 tab PO Q4H PRN 3 Days #18 tab 02/01/22 Lidocaine 5% Oint [Xylocaine 5% Oint] 1 applic TOPICAL BID PRN 30 Days #30 gm 02/01/22 Controlled Substance Measures - Controlled Substance Measures Is patient prescribed a controlled substance at discharge?: No
== END ==
LOC: PNWHC3 12:43
PROVIDERS: ATTEND Specialist
DX: M51.36 Other intervertebral disc degeneration, lumbar region (principal); M51.27 Other intervertebral disc displacement, lumbosacral region; G89.29 Other chronic pain; Z88.5 Allergy status to narcotic agent
CPT/HCPCS: 99211

== ENCOUNTER → 2022-04-20 | Outpatient (CLI) | payer BC ==
[2022-04-20 18:20] LABS: Basophils # (A) 0.05 X 10*3/uL (0.00-0.10); Basophils % (A) 1.1 %; Eosinophils # (A) 0.19 X 10*3/uL (0.04-0.35); HCT 43.8 % (39.6-50.0); HGB 14.4 g/dL (13.0-17.0); Immature Grans, Automated 1.3 %; Lymphocytes # (A) 1.74 X 10*3/uL (0.90-5.00); Lymphocytes % (A) 36.9 %; MCH 28.3 pg (27.0-32.0); MCHC 32.9 g/dL (32.0-37.0); MCV 86.1 fL (80.0-97.0); Monocytes # (A) 0.42 X 10*3/uL (0.20-1.00); Monocytes % (A) 8.9 %; NRBC Per 100 WBC 0 /100 WBCS (0.0-0.0); Neutrophils # (A) 2.26 X 10*3/uL (1.80-7.70); Neutrophils % (A) 47.8 %; Platelet Count 176 X 10*3/uL (140-440); RBC 5.09 X 10*6/uL (4.40-5.60); RDW 13.3 % (11.5-14.5); WBC 4.72 X 10*3/uL (4.50-10.00)
[2022-04-20 18:22] LABS: African American GFR (CKD) 99.1 (60.0-200.0); Anion Gap 7.5 mmol/L (10.00-18.00); BUN/Creat Ratio 15.53 Ratio (12.00-20.00); Calcium 9.7 mg/dL (8.7-10.3); Non-African American GFR(CKD) 85.5 (60.0-200.0); Potassium 4.4 mmol/L (3.5-5.5)
[2022-04-21 13:03] LABS: T4/T8 Ratio (CD4:CD8) 0.6 (1.0-3.7)
== END | disposition home or self-care (01) ==
LOC: LABWHC1 13:04
PROVIDERS: ATTEND Internal Medicine Infectious Disease
DX: B20 Human immunodeficiency virus [HIV] disease (principal)
CPT/HCPCS: 36415; 80048; 84450; 84460; 85025; 86360; 87536

== ENCOUNTER → 2023-03-14 | Outpatient (CLI) | payer BC ==
--- NOTE | 2023-03-14 15:43 | P.SLEEP ---
History of Present Illness DATE: 03/14/2023 CONSULTATION/NEW PATIENT EVALUATION HISTORY OF PRESENT ILLNESS/SLEEP-WAKE EVALUATION: 47-year-old gentleman had been evaluated in the sleep center for possible obstructive sleep apnea hypopnea syndrome. SLEEP SCHEDULE: Usually sleep schedule from 1011 PM until 6:30 AM on weekdays and from 1112 until 9 AM on weekend. FALLING ASLEEP: Patient has problems with falling asleep, has TV set and bedroom. DURING SLEEP: Patient usually sleeps on the side position with loud snoring and witnessed episodes of stop breathing during the sleep. Patient wakes up from sleep 3 times with nocturia and episodes of gasping for air. Positive history of jerking movements during the sleep. No history of hypnogogical h allucinations, sleep paralysis, or cataplexy. DURING THE DAY/WAKE STATE: In the morning patient wakes up tired, has difficulties to pay attention. [place] sleepiness scale is 6. Patient usually doesn't take any naps. PAST MEDICAL HISTORY: HIV-positive, according to patient viral load undetectable the present time, ADHD, hypertension. PAST SURGICAL HISTORY: Surgical history of umbilical hernia repair. MEDICATIONS: Amlodipine, Concerta , Stribild. SOCIAL HISTORY: Negative for smoking, alcohol consumption occasional. FAMILY HISTORY: Heart problems, stroke, diabetes. REVIEW OF SYSTEMS: Snoring, multiple awakenings from sleep, gasping for air. No fevers. No double vision. No recent chest pain. No shortness of breath. No abdominal pain. No bleeding episodes. No blood in urine. No seizure episodes. PHYSICAL EXAMINATION: GENERAL: A pleasant patient without any distress. VITAL SIGNS: BP 131/70 , HR 84 , RR 16 , weight 225.8 pounds, height 5 foot 8.5 inches, body mass index 33.7 . HEENT: PERRLA, EOMI. Evaluation of oropharynx showed tongue protrudes midline, low position of soft palate Mallampati 4. NECK: Supple. No JVD. Thyroid is not palpable. 20 inches in circumference. LUNGS: Clear to percussion and to auscultation. Good air exchange. No wheezing or rhonchi. HEART: S1, S2 regular. No murmurs, gallops or rubs. ABDOMEN: Soft and nontender. Bowel sounds are present. No organomegaly appreciated. Slightly obese. EXTREMITIES: No clubbing or cyanosis. HAND SLITTER: Awake, alert, and oriented x3. Cranial nerves 2 to 7 intact. There is no fasciculation or atrophy noted. No focal deficits observed. ASSESSMENT: 1. Snoring, witnessed episodes of stop breathing during the sleep, multiple awakenings from sleep, extremely low position of soft palate Mallampati 4, wide neck 20 inches in circumference. Obstructive sleep apnea hypopnea syndrome. 2. HIV-positive, viral load is undetectable according to patient. 3. Hypertension. 4. History of ADHD. 5 status post surgical treatment for umbilical hernia repair. PLAN: 1. Home sleep apnea test for evaluation of patient's breathing during sleep. 2. CPAP/BiPAP titration if sleep study confirms obstructive sleep apnea- hypopnea syndrome. 3. Preferable position during sleep on the side. 4. No driving if patient feels any sleepiness. Patient is aware of civil and criminal liability for unsafe driving. 5. Sleep hygiene with regular sleep time for at least 7.5-8 hours. 6. Watching and losing weight. Thank you very much for referring this patient for consultation. Sincerely, Chilo Pickett MD, PhD, FAASM. Diplomat of [place] [employer], Sleep Medicine Board by [place] [employer] [place] [employer] Wool Hat Sanding Machine Operator of [facility] [place] Past Medical History Past Medical History: GERD/Reflux Additional Past Medical History / Comment(s): HX OF SPINAL FUSION-OCCASIONAL BACK PAIN, UMBILICAL HERNIA., kidney stones, HIV History of Any Multi-Drug Resistant Organisms: None Reported Past Surgical History: Back Surgery Additional Past Surgical History / Comment(s): SPINAL FUSION 2013 (LUMBAR), umbilical hermia Past Anesthesia/Blood Transfusion Reactions: No Reported Reaction Smoking Status: Never smoker - Past Family History Mother Family Medical History: No Reported History Medications and Allergies Home Medications Medication Instructions Recorded Confirmed Type Lisdexamfetamine Dimesylate 60 mg PO DAILY 02/29/16 02/01/22 History [Vyvanse] Elviteg/Cob/Emtri/Tenofo Disop 1 tab PO DAILY 04/29/20 02/01/22 History [Stribild Tablet] Mometasone Furoate [Nasonex Nasal 2 spray EA NOSTRIL DAILY 04/29/20 02/01/22 History [place]] Amoxic-Pot Clav 875-125Mg 1 tab PO Q12HR 7 Days #6 tab 05/02/20 02/01/22 Rx [Augmentin 875-125] HYDROcodone/APAP 5-325MG [[place] 1 - 2 tab PO Q4H PRN 3 Days #18 tab 02/01/22 Rx 5-325] Lidocaine 5% Oint [Xylocaine 5% 1 applic TOPICAL BID PRN 30 Days 02/01/22 Rx Oint] #30 gm Allergies Allergy/AdvReac Type Severity Reaction Status Date / Time codeine AdvReac Nausea & Verified 02/01/22 08:44 Vomiting, Rash/Hives Sleep Note - Sleep Note Sleep Note: Temperature: Pulse Rate: Respiratory Rate: Blood Pressure: SpO2: Height: Weight: BMI: Neck Circumference:
== END ==
LOC: 3 N SLEEP 14:40
PROVIDERS: ATTEND Internal Medicine
DX: G47.33 Obstructive sleep apnea (adult) (pediatric) (principal); I10 Essential (primary) hypertension; F90.9 Attention-deficit hyperactivity disorder, unspecified type; B20 Human immunodeficiency virus [HIV] disease; Z99.89 Dependence on other enabling machines and devices; Z88.5 Allergy status to narcotic agent
CPT/HCPCS: 99211

== ENCOUNTER → 2023-07-12 | Outpatient (CLI) | payer BC ==
[2023-07-12 22:02] LABS: Hepatitis A Antibody IgM Nonreactive; Hepatitis B Core IgM Nonreactive; Hepatitis B Surface Antigen Nonreactive; Hepatitis C IgG Antibody Nonreactive
[2023-07-13 00:55] LABS: HIV 2 AB Non-Reactive (Non-Reactive); HIV AB P24 REACTIVE; HIV P24 AG Non-Reactive (Non-Reactive)
[2023-07-13 12:36] LABS: T4/T8 Ratio (CD4:CD8) 0.6 (1.0-3.7)
== END | disposition home or self-care (01) ==
LOC: LABWHC1 13:06
PROVIDERS: ATTEND Family Medicine
DX: B20 Human immunodeficiency virus [HIV] disease (principal); R94.5 Abnormal results of liver function studies
CPT/HCPCS: 36415; 80074; 86360; 87389; 87390

== ENCOUNTER → 2023-07-15 | Outpatient (CLI) | payer BC ==
[2023-07-16 11:17] LABS: HIV-1 RNA DETECTED (Not detected); HIV-1 RNA, Quant <20 Copies/mL (<20); LOG HIV Copies/mL <1.30 (<1.30)
== END | disposition home or self-care (01) ==
LOC: LABWHC1 15:32
PROVIDERS: ATTEND Family Medicine
DX: B20 Human immunodeficiency virus [HIV] disease (principal); R79.89 Other specified abnormal findings of blood chemistry
CPT/HCPCS: 36415; 87536

== ENCOUNTER → 2023-07-29 | Outpatient (CLI) | payer BC ==
--- NOTE | 2023-07-31 19:18 | P.PCN ---
Description of Procedure: CLINICAL: A home sleep apnea test has been done for confirmation of possible obstructive sleep apnea-hypopnea syndrome. DESCRIPTION OF PROCEDURE: RESULTS: Recording time was 12 hours 0 minutes. Evaluation time was 9 hours 3 minutes. Evaluation time is sufficient for making conclusion about results of the test. Raw data of sleep recording has been reviewed and is adequate. Respiratory channel showed 3 apneas and 159 hypopneas. Pulse rate in the range between minimum 53, maximum 185, average 81 by computer calculation. Lowest desaturation was 78 %. IMPRESSION: 1. Moderate Obstructive Sleep Apnea Hypopnea Syndrome. Please see other impressions from consultation. PLAN: 1. The patient will be started on auto-PAP treatment for correction of respiratory abnormallities during sleep. 2. I will see patient for follow up visit to discuss results of the test, evaluate clinical response on treatment with PAP therapy and make any necessary adjustments related to mask fitting, pressure, and humidification. 3. Watching and losing weight. 4. Sleep hygiene with regular time in bed for at least 8 hours. 5. No driving if feeling any sleepiness. Thank you very much for allowing me to participate in the management of your patient. Sincerely, Chilo Pickett MD, PhD, FAASM Diplomat of [place] [employer] Sleep Medicine Board of [place] [employer] Internal Medicine Internal Communications Writer of [facility] [place]
== END ==
LOC: 3 N SLEEP 10:58
PROVIDERS: ATTEND Internal Medicine
DX: G47.33 Obstructive sleep apnea (adult) (pediatric) (principal); Z88.5 Allergy status to narcotic agent

== ENCOUNTER → 2023-09-04 | Outpatient (CLI) | payer BC ==
--- NOTE | 2023-09-04 12:07 | US ---
EXAMINATION TYPE: US abdomen limited DATE OF EXAM: 09/04/2023 COMPARISON: CT 2019 CLINICAL INDICATION: Male, 47 years old with history of B20 HUMAN IMMUNODEFICIENCY VIRUS R945; TECHNIQUE: Multiple sonographic images of the right upper quadrant are obtained. FINDINGS: EXAM MEASUREMENTS: Liver Length: 17.0 cm Gallbladder Wall: 0.26 cm CBD: 0.28 cm Right Kidney: 11.6 x 6.6 x 5.2 cm CAP COVERER NOTES: Pancreas: Bulky appearance; limited visualization due to overlying bowel gas Liver: Increased echogenicity , no suspicious masses, dilated ducts or cystic structures. Gallbladder: wnl Evidence for sonographic Mandel's sign: No CBD: wnl Right Kidney: wnl IMPRESSION: 1. Hepatic steatosis. 2. No evidence for acute process.
== END | disposition home or self-care (01) ==
LOC: RADUSWWP 09:41
PROVIDERS: ATTEND Family Medicine
DX: K76.0 Fatty (change of) liver, not elsewhere classified (principal); B20 Human immunodeficiency virus [HIV] disease; R94.5 Abnormal results of liver function studies
CPT/HCPCS: 76705

== ENCOUNTER → 2023-11-13 | Outpatient (CLI) | payer BC ==
--- NOTE | 2023-11-13 12:18 | P.PN ---
Subjective DATE: [] FOLLOW UP VISIT. Patient with obstructive sleep apnea hypopnea syndrome return to sleep center for follow-up visit. Recently patient had sleep study which documented obstructive sleep apnea hypopnea syndrome. Patient was initiated on PAP therapy and today is first visit after treatment was started. Patient was able to use PAP equipment every night for the whole night. Patient results of home sleep apnea test in details. The patient does not have significant problems with the mask, PAP pressure and humidification. [place] sleepiness scale is 1, which showed improvements. During consultation before treatment of her sleepiness scale is 6. I checked information from PAP unit. PAP unit pressure 5-14, average 9.9 cm H2O. Usage is 98% and around 70 % for more then 4 hours. Leak is slightly increased to 30 l/m. Apnea Hypopnea Index is 0.7, which is normal. MEDICATIONS:1. Amlodipine 2. Concerta 3. Stribilt During physical exam: GENERAL: A pleasant patient without any distress. VITAL SIGNS: BP 126/88, HR 90, RR 18 , weight 235.0, temperature 98.2, oxygen saturation at room air 94% . HEENT: PERRLA, EOMI.low position of soft palate, Mallapati 4 . NECK: Supple. No JVD. LUNGS: Clear to percussion and to auscultation. Good air exchange. No wheezing or rhonchi. HEART: S1, S2 regular. ABDOMEN: Soft and nontender.[] EXTREMITIES: No clubbing or cyanosis. PATHOLOGY MANAGER: Awake, alert, and oriented x3. No focal deficit. Impressions: 1. Obstructive sleep apnea-hypopnea syndrome. Patient demonstrated good compliance with treatment, benefiting from treatment. 2. Hypertension. 3. HIV-positive, viral load is undetectable according to patient. 4. History of ADHD. 5. Status post surgical treatment for umbilical hernia repair. Plan: 1. Continue using PAP equipment every night for the whole night. 2. To change air filter at least 1-2 times per month. 3. PAP unit should stay lower then position of the head. 4. Advised patient to remove all remaining water from humidifier canister daily and make it dry after each usage. Refill canister with fresh distilled water before each usage. 5. Sleep hygiene with regular time in bed for at least 8 hours. 6. Precautions related to driving. No driving if feel any sleepiness. 7. I will maintain prescription for PAP supplies including mask, tube, filters. 8. Follow up visit in 6 months or earlier if patient has any problems. 9. Watching weight. Thank you very much for allowing me to participate in the management of your patient. Chilo Pickett MD, PhD, FAASM. Diplomat of [place] [employer], Sleep Medicine Board by [place] [employer] Medicine Rn Vascular of [facility] [place]
== END ==
LOC: 3 N SLEEP 11:08
PROVIDERS: ATTEND Internal Medicine
DX: G47.33 Obstructive sleep apnea (adult) (pediatric) (principal); I10 Essential (primary) hypertension; F90.9 Attention-deficit hyperactivity disorder, unspecified type; Z21 Asymptomatic human immunodeficiency virus [HIV] infection status; Z98.890 Other specified postprocedural states; Z99.89 Dependence on other enabling machines and devices; Z79.899 Other long term (current) drug therapy; Z88.5 Allergy status to narcotic agent
CPT/HCPCS: 99212

== ENCOUNTER → 2024-06-11 | Outpatient (CLI) | payer BC ==
[2024-06-11 11:28] VITALS: BP 132/90; PULSE 97; RESP 20; TEMP 98.1
--- NOTE | 2024-06-11 11:43 | P.PROGSL ---
Subjective DATE: 06/11/2024 FOLLOW UP VISIT. Patient with obstructive sleep apnea hypopnea syndrome return to sleep center for follow-up visit. Information from previous visit have been reviewed. Patient is using PAP equipment every night for the whole night, getting PAP supplies in time. The patient does not have significant problems with the mask, PAP unit and humidification. [place] sleepiness scale is 3, which is normal. I checked information from PAP unit. PAP unit pressure 5-14, average 7.4 cm H2O. Usage is 100% for more then 4 hours, average 3.3 hours per night. Leak is 28 l/m, which is in acceptable range. Apnea Hypopnea Index is 0.4, which is normal. MEDICATIONS have been reviewed, please see below. During physical exam: GENERAL: A pleasant patient without any distress. VITAL SIGNS: Please see below, weight is 228.6 lbs. HEENT: PERRLA, EOMI.low position of soft palate, Mallapati 4 . NECK: Supple. No JVD. LUNGS: Clear to percussion and to auscultation. Good air exchange. No wheezing or rhonchi. HEART: S1, S2 regular. ABDOMEN: Soft and nontender. Obese EXTREMITIES: No clubbing or cyanosis. PORTFOLIO ASSISTANT: Awake, alert, and oriented x3. No focal deficit. Impressions: 1. Obstructive sleep apnea-hypopnea syndrome. Patient demonstrated great compliance with treatment, benefiting from treatment. 2. Obesity, BMI 33.9, patient lost 7 pounds comparing with the previous visit. 3. HIV positive with undetectable viral load at the present time according to patient. 4. Hypertension. 5. History of ADHD. 6. Status post surgical treatment for umbilical hernia. Plan: 1. Continue using PAP equipment every night for the whole night. 2. Sleep hygiene with regular time in bed for at least 7.5-8 hours 3. PAP unit should stay lower then position of the head. 4. Advised patient to remove all remaining water from humidifier canister daily and make it dry after each usage. Refill canister with fresh distilled water before each usage. 5. Watching and continue losing weight. 6. Precautions related to driving. No driving if feel any sleepiness. 7. I will maintain prescription for PAP supplies including mask, tube, filters. 8. Follow up visit in 8 months or earlier if patient has any problems. Thank you very much for allowing me to participate in the management of your patient. Chilo Pickett MD, PhD, FAASM. Diplomat of [place] [employer] Sleep Medicine, Sleep Medicine Board by [place] [employer] Internal Medicine Metalsmith of [facility] [place] Objective - Vital Signs Vital Signs: Vital Signs Temp 98.1 F 06/11/24 11:28 Pulse 97 06/11/24 11:28 Resp 20 06/11/24 11:28 BP 132/90 06/11/24 11:28 Pulse Ox 95 06/11/24 11:28 FiO2 Intake & Output 06/10/24 06/11/24 06/11/24 18:59 06:59 18:59 Weight 103.589 kg Home Medications: Home Medications Medication Instructions Recorded Confirmed Type Lisdexamfetamine Dimesylate 60 mg PO DAILY 02/29/16 02/01/22 History [Vyvanse] Elviteg/Cob/Emtri/Tenofo Disop 1 tab PO DAILY 04/29/20 02/01/22 History [Stribild Tablet] Mometasone Furoate [Nasonex Nasal 2 spray EA NOSTRIL DAILY 04/29/20 02/01/22 History [place]] Amoxic-Pot Clav 875-125Mg 1 tab PO Q12HR 7 Days #6 tab 05/02/20 02/01/22 Rx [Augmentin 875-125] HYDROcodone/APAP 5-325MG [[place] 1 - 2 tab PO Q4H PRN 3 Days #18 tab 02/01/22 Rx 5-325] Lidocaine 5% Oint [Xylocaine 5% 1 applic TOPICAL BID PRN 30 Days 02/01/22 Rx Oint] #30 gm
== END ==
LOC: 3 N SLEEP 11:07
PROVIDERS: ATTEND Internal Medicine
DX: G47.33 Obstructive sleep apnea (adult) (pediatric) (principal); E66.9 Obesity, unspecified; I10 Essential (primary) hypertension; Z21 Asymptomatic human immunodeficiency virus [HIV] infection status; Z98.890 Other specified postprocedural states; Z68.33 Body mass index [BMI] 33.0-33.9, adult; Z99.89 Dependence on other enabling machines and devices; Z88.5 Allergy status to narcotic agent; Z86.59 Personal history of other mental and behavioral disorders
CPT/HCPCS: 99212

== ENCOUNTER → 2024-09-24 | Outpatient (CLI) | payer BC ==
[2024-09-24 16:41] LABS: Basophils # (A) 0.1 k/uL (0-0.2); Basophils % (A) 1 %; Eosinophils # (A) 0.1 k/uL (0-0.7); Eosinophils % (A) 1 %; HCT 49.2 % (39.0-53.0); HGB 16.8 gm/dL (13.0-17.5); Lymphocytes # (A) 2.8 k/uL (1.0-4.8); Lymphocytes % (A) 50 %; MCH 27.6 pg (25.0-35.0); MCHC 34.1 g/dL (31.0-37.0); MCV 80.9 fL (80.0-100.0); Mean Platelet Volume 6.5; Monocytes # (A) 0.4 k/uL (0-1.0); Monocytes % (A) 6 %; Neutrophils # (A) 2.1 k/uL (1.3-7.7); Neutrophils % (A) 38 %; Platelet Count 179 k/uL (150-450); RBC 6.08 m/uL (4.30-5.90); WBC 5.5 k/uL (3.8-10.6)
[2024-09-24 17:27] LABS: ALT 85 U/L (4-49); AST 49 U/L (17-59); African American GFR (CKD) >90 (>60 ml/min/1.73 sqM); Albumin 4.4 g/dL (3.5-5.0); Alkaline Phosphatase 157 U/L (38-126); Anion Gap 11 mmol/L; Blood Urea Nitrogen 22 mg/dL (9-20); Calcium 9.2 mg/dL (8.4-10.2); Carbon Dioxide 26 mmol/L (22-30); Chloride 96 mmol/L (98-107); Glucose 361 mg/dL (74-99); Non-African American GFR(CKD) >90 (>60 ml/min/1.73 sqM); Potassium 4.1 mmol/L (3.5-5.1); Sodium 133 mmol/L (137-145); Total Bilirubin 0.4 mg/dL (0.2-1.3); Total Protein 7.4 g/dL (6.3-8.2)
[2024-09-24 17:58] LABS: T4, Free (Free Thyroxine) 1.29 ng/dL (0.78-2.19)
[2024-09-24 19:30] LABS: Hepatitis A Antibody IgM Nonreactive (Nonreactive); Hepatitis B Core IgM Nonreactive (Nonreactive); Hepatitis B Surface Antigen Nonreactive (Nonreactive); Hepatitis C IgG Antibody Nonreactive (Nonreactive)
[2024-09-25 03:30] LABS: Chol/HDL Ratio 6.58 Ratio; PSA Annual Screen 0.935 ng/mL (0.000-4.000)
[2024-09-25 10:18] LABS: HIV-1 RNA DETECTED (Not detected)
[2024-09-25 15:18] LABS: T Helper Cell (CD4) 691 cell/ul (443-1471); T Helper Cell (CD4) % 24 % (35-66); T Suppressor Cell (CD8) 1502 cell/ul (190-832); T Suppressor Cell (CD8) % 52 % (9-37); T4/T8 Ratio (CD4:CD8) 0.5 (1.0-3.7)
== END | disposition home or self-care (01) ==
LOC: LABT 15:49
PROVIDERS: ATTEND Nurse Practitioner Family
DX: Z00.00 Encounter for general adult medical examination without abnormal findings (principal); Z12.5 Encounter for screening for malignant neoplasm of prostate; I10 Essential (primary) hypertension; E11.9 Type 2 diabetes mellitus without complications; B20 Human immunodeficiency virus [HIV] disease; J18.9 Pneumonia, unspecified organism
CPT/HCPCS: 87535; 84439; 80061; 80053; 80074; 86360; 84443; 85025; 83721; 83036; G0103

== ENCOUNTER 2024-12-24 06:39 | Day surgery (SDC) | payer BC ==
[2024-12-21 13:20] VITALS: BMI 34.4
[2024-12-24] MEDS ORDERED: LACTATED RINGERS 1,000 ML IV SCH (06:42)
[2024-12-24 07:28] VITALS: TEMP 97
[2024-12-24] MEDS: IV FLUID CONTINUATION 1,000 ML IV ONE (07:31)
[2024-12-24] MEDS ORDERED: PROPOFOL 10 MG/ML 20 ML VIAL IV ONE (07:35)
[2024-12-24 07:44] LABS: Glucose,Whole Blood 117 mg/dL (70-110)
--- NOTE | 2024-12-24 07:56 | P.PCN ---
Date of Procedure: 12/24/24 Preoperative Diagnosis: Screening for colon cancer Postoperative Diagnosis: Internal hemorrhoid Procedure(s) Performed: Colonoscopy Anesthesia: MAC Surgeon: Bishop Tim Pathology: none sent Condition: stable Disposition: same day Indications for Procedure: 49-year-old male presents today for screening colonoscopy. Denies any blood in the stool. Denies family history of colon cancer. Risks, benefits and alternatives were provided to the patient Operative Findings: Internal hemorrhoid Description of Procedure: The patient was brought to the endoscopy suite and placed in left lateral decubitus position and adequate sedation was achieved using conscious sedation. Digital rectal exam was performed and mild internal hemorrhoids were palpated. An endoscope was then placed in the rectum and advanced to the cecum as identified by landmarks including the appendiceal orifice and the ileocecal valve. The prep was good. The colonoscope was then slowly withdrawn, examining for any mucosal abnormalities. The cecum, ascending, transverse, descending and sigmoid colon were visualized adequately. There were no large neoplastic lesions noted throughout the colon. There are no obvious polyps noted throughout the colon. No evidence of diverticulosis. Hemostasis was maintained. Retroflexion was performed in the rectum and internal hemorrhoid. Excess air was removed, the colonoscope withdrawn and the procedure terminated. The patient was then transferred to the recovery unit in stable condition. Repeat colonoscopy should be performed in 10 years.
[2024-12-24 08:03] VITALS: RESP 14
[2024-12-24 08:11] VITALS: BP 113/85; PULSE 75
== END 2024-12-24 08:28 | disposition home or self-care (01) ==
LOC: ORWHC2ENDO 06:39
PROVIDERS: ATTEND Surgery
DX: Z12.11 Encounter for screening for malignant neoplasm of colon (principal); K64.8 Other hemorrhoids; I10 Essential (primary) hypertension; E11.9 Type 2 diabetes mellitus without complications; G47.33 Obstructive sleep apnea (adult) (pediatric); F90.9 Attention-deficit hyperactivity disorder, unspecified type; B20 Human immunodeficiency virus [HIV] disease; Z79.84 Long term (current) use of oral hypoglycemic drugs; Z79.85 Long-term (current) use of injectable non-insulin antidiabetic drugs; Z79.899 Other long term (current) drug therapy; Z88.5 Allergy status to narcotic agent
CPT/HCPCS: 45378; J2704